=== PATIENT | female | born 1945 | race Caucasian/White ===

== ENCOUNTER 2018-05-11 11:31 | Inpatient (IN) ==
--- NOTE | 2018-05-11 12:27 | P.PNCC ---
Objective Vital Signs / I&O: Vital Signs 05/11/18 11:49 Temperature 98.3 F Pulse Rate 50 L Respiratory Rate 21 Blood Pressure 127/62 Pulse Oximetry 98
--- NOTE | 2018-05-11 12:34 | P.HPCC ---
History of Present Illness Service: Critical care medicine Primary Care Physician: UNKNOWN Chief Complaint: Acute hemorrhagic stroke History of Present Illness: 73 y/o woman developed acute expressive aphasia earlier today while on the [place] rehab service. CAT scan of the head reveals a new basal ganglia hemorrhage. I discussed the patient with Dr. Vu and arrangements for transfer were made to the intensive surgical care unit. Recent history includes a hemorrhagic thalamic stroke on April 18 resulting in dense left sided hemiplegia following which she was receiving rehab care at [facility]. She is a 73-year-old female, [id number] with past medical history of hypertension, diabetes mellitus type 2 on oral agent at home, atrial fibrillation status post ablation and depression. In her usual state of health which included independence in ambulation and self-care until 04/18/2018 when she was admitted to [facility] after she slumped forward while sitting in a chair falling to the ground. states the patient did not hit her head, she had immediate left-sided weakness and was brought in as a stroke alert. Dr Jeison Black, tele-neurology consult. Also noted on exam was right gaze preference and hypersensitivity left upper and left lower extremity. CT scan of the head showed a right sided intracerebral hemorrhage involving the thalamic region and the internal capsule with mild mass-effect over the right lateral ventricle she was conscious on arrival and able to protect her airway. Her blood pressure was elevated. Chest x-ray showed cardiomegaly, poststernotomy and possibly mild CHF. Inpatient Certification: I certify that the inpatient services were ordered in accordance with Medicare regulations governing the order. This includes certification that hospital inpatient services are reasonable and necessary and in the case of services not specified as inpatient-only under 42 CFR 419.22(n), that they are appropriately provided as inpatient services in accordance to with the 2-midnight benchmark under 43 CFR 412.3(e) Review of Systems No chest pain or shortness of breath. PMF - History History Provided By: Patient (Resides in a 1 floor home with who is in good health, no steps at entry, retired x-ray sterile instrument technician) - Medical History Medical History: Medical History (Last Reviewed 05/13/18 @ 08:45 by Kirstin Zamorano, [employer] OPERATOR) Cerebral hemorrhage with hemiparesis Depression A-fib DM type 2 (diabetes mellitus, type 2) HTN (hypertension) - Surgical History Surgical History: Surgical History (Last Reviewed 05/13/18 @ 08:13 by Leopoldo Currie) Hx of CABG S/P ablation of atrial fibrillation - Family History Family History: Family History (Last Updated 05/12/18 @ 16:53 by BRISA Rico) Father Hypertension Stroke Brother Hypertension Sister Multiple sclerosis Mother Dementia Brother Stroke - Tobacco History Second Hand Smoke Exposure: No Smoking Status: Never smoker - Alcohol History How Often Do You Have a Drink Containing Alcohol: Monthly or less - Substance Use History Substance History: No History of Abuse Medications and Allergies Allergies Allergy/AdvReac Type Severity Reaction Status Date / Time Iodinated Contrast- Oral and Allergy Severe HIVES, Verified 04/29/18 09:15 IV Dye CAN'T BREATHE ammonia Allergy Intermediate SOB Verified 04/29/18 09:15 hydrocodone Allergy Intermediate VOMITING Verified 04/29/18 09:15 penicillin G Allergy Intermediate HIVES, Verified 04/29/18 09:15 THROAT CLOSED Sulfa (Sulfonamide Allergy Intermediate HIVES, Verified 04/29/18 09:15 Antibiotics) THROAT CLOSED tree and shrub pollen Allergy Intermediate SOB Verified 04/29/18 09:15 Home Medications Medication Instructions Recorded Confirmed Type insulin glargine 16 unit SUB-Q DAILY 04/28/18 04/28/18 History multivitamin with minerals 2 tab PO BID 04/28/18 04/28/18 History ondansetron HCl 2 mg/ml IV Q4HR PRN 04/28/18 04/28/18 History Results - Labs CBC & Chem 7: 05/14/18 04:08 Exam Vital signs: Vital Signs 05/11/18 11:49 Temperature 98.3 F Pulse Rate 50 L Respiratory Rate 21 Blood Pressure 127/62 Pulse Oximetry 98 Narrative: General: No acute distress, Other (Alert, follows commands) HEENT: Normocephalic, atraumatic. PERRL, conjunctiva pink, sclera nonicteric. Respiratory: Lungs CTA, Non-labored respirations, BS equal, Symmetrical expansion Gastrointestinal: Positive bowel sounds, Distended (Soft), Non-tender. Cardiovascular: Normal rate, Intact pulses, Normal peripheral perfusion, No edema, Regular rhythm Skin: No rash, Other (Full exam of skin completed, pink slightly red rash bilateral inguinal folds, mild red satellite lesions consistent with fungal) Musculoskeletal: ROM (No restrictions on passive and active range of motion) Psychiatric: Cooperative, Appropriate mood & affect Neuro: Dense left hemiplegia, chronic. Tongue protrudes to left side. No left sided shoulder shrug. EOMs intact. Moves right side with normal strength. Caprini VTE Risk Assessment Caprini VTE Risk Assessment: Moderate/High Risk (score >= 2) Caprini Risk Assessment Model: Point Value = 1 Point Value = 2 Point Value = 3 Point Value = 5 Age 41-60 Minor surgery BMI > 25 kg/m2 Swollen legs Varicose veins or History of unexplained or recurrent spontaneous Oral contraceptives or hormone replacement Sepsis (< 1 month) Serious lung disease, including pneumonia (< 1 month) Abnormal pulmonary function Acute myocardial infarction Congestive heart failure (< 1 month) History of inflammatory bowel disease Medical patient at bed rest Age 61-74 Arthroscopic surgery Major open surgery (> 45 min) Laparoscopic surgery (> 45 min) Malignancy Confined to bed (> 72 hours) Immobilizing plaster cast Central venous access Age >= 75 History of VTE Family history of VTE Factor V Leiden Prothrombin [id number] Lupus anticoagulant Anticardiolipin antibodies Elevated serum homocysteine Heparin-induced thrombocytopenia Other congenital or acquired thrombophilia Stroke (< 1 month) Elective arthroplasty Hip, pelvis, or leg fracture Acute spinal cord injury (< 1 month) Prophylaxis Regimen: Total Risk Factor Score Risk Level Prophylaxis Regimen 0-1 Low Early ambulation 2 Moderate Order ONE of the following: *Sequential Compression Device (SCD) *Heparin 5000 units SQ BID 3-4 Higher Order ONE of the following medications: *Heparin 5000 units SQ TID *Enoxaparin/Lovenox 40 mg SQ daily (WT < 150 kg, CrCl > 30 mL/min) *Enoxaparin/Lovenox 30 mg SQ daily (WT < 150 kg, CrCl > 10-29 mL/min) *Enoxaparin/Lovenox 30 mg SQ BID (WT < 150 kg, CrCl > 30 mL/min) AND/OR *Sequential Compression Device (SCD) 5 or more Highest Order ONE of the following medications: *Heparin 5000 units SQ TID (Preferred with Epidurals) *Enoxaparin/Lovenox 40 mg SQ daily (WT < 150 kg, CrCl > 30 mL/min) *Enoxaparin/Lovenox 30 mg SQ daily (WT < 150 kg, CrCl > 10-29 mL/min) *Enoxaparin/Lovenox 30 mg SQ BID (WT < 150 kg, CrCl > 30 mL/min) AND *Sequential Compression Device (SCD) Assessment and Plan - Assessment and Plan Plan: Assessment and Plan - Diagnosis (1) Nontraumatic intracerebral hemorrhage of basal ganglia Onset Date: ~04/18/18 Status: Acute (2) Acute respiratory failure with hypoxia Onset Date: ~04/18/18 Status: Acute (3) Impaired mobility and ADLs Onset Date: ~04/18/18 Status: Acute (4) Dysphagia Onset Date: ~04/18/18 Status: Acute (5) Poorly controlled diabetes mellitus Onset Date: ~04/18/18 Status: Acute (6) S/P ablation of atrial fibrillation Status: Acute (7) Hypertension Onset Date: ~04/18/18 Status: Acute (8) Depression Status: Chronic (9) Aspiration pneumonia Onset Date: ~04/19/18 Status: Acute - Diagnosis (1) Nontraumatic intracerebral hemorrhage of right basal ganglia Right sided thalamic stroke April 18, new right sided basal ganglia stroke with Left hemiplegia May 11 Ms. Adelita Carey will receive comprehensive care including rehabilitation medicine management, rehabilitation nursing, at least 3 hours of rehabilitation therapies including physical, occupational and speech therapy, recreational therapy and case management. (2) Acute respiratory failure with hypoxia Plan: Monitor oximetry with exercise pre and during for desaturation. Onset Date: ~04/18/18 Status: Acute (3) Impaired mobility and ADLs Plan: Consult PT and OT to evaluate and treat Onset Date: ~04/18/18 Status: Acute (4) Dysphagia Plan: Maintain ADA diet, mechanical soft with chopped meats and gravy, nectar thick liquids. Speech therapy to evaluate and treat Onset Date: ~04/18/18 Status: Acute (5) Poorly controlled diabetes mellitus Plan: Medical consultation requested. For now Lantus 16 units every morning will start before meals at bedtime insulin sliding scale. ADA diet Onset Date: ~04/18/18 Status: Acute (6) S/P ablation of atrial fibrillation Plan: Hold anticoagulants at present due to intracerebral bleed Status: Acute (7) Hypertension Plan: Poorly controlled on initial presentation with acute stroke/bleed, maintain systolic pressure less than 160. Patient is on new multi drug regimen. Hospitalist consultation for ongoing care. Monitor blood pressure monitoring of vital signs and tolerance to exercise in therapy to ensure stable heart rate and BP and adequate perfusion, monitor for arrhythmia, adjustment of medications , monitoring for side effects of medications Onset Date: ~04/18/18 Status: Acute (8) Depression Plan: Continue Remeron. Psychology consultation if clinically indicated with new stroke Status: Chronic (9) Aspiration pneumonia Plan: Speech therapy to evaluate and treat for swallow. Maintain diet mechanical soft , nectar thick liquids. Complete course of clindamycin and Ceftin. Monitor WBC, vital signs/ temperature. Optimize pulmonary function and monitor oximetry and tolerance to exercise in therapy Onset Date: ~04/19/18 Status: Acute
[2018-05-11] MEDS ORDERED: Bisacodyl 10 MG Supp RECTAL PRN (12:57)
[2018-05-11] MEDS: Acetaminophen 325 MG Tablet PO PRN (14:18)
--- NOTE | 2018-05-11 16:12 | P.PNPSYCH ---
- Emotional Mild: Depressed/sad - Progress Notes/Response to Treatment Contents of Sessions: Challenges, Medical Procedure and Time with Patient: Psychotherapy 01234, 53-60 minutes Targeted Symptoms/Reason for Referral: All symptoms related to patient adjusting to decreased functional ability immediately following medical stay, to encourage ongoing program participation, and to provide empathic listening as patient processes thoughts and feelings about medical complexities. Symptoms include, but are not limited to, fluctuating levels of anxiety, depressed mood, and frustration related to loss of independence and autonomy. Type of Therapeutic Intervention: Supportive, interpersonal, insight oriented, with collateral focus on family/ caregiver system as needed. Treatment Plan: The plan is to continue to provide supportive psychotherapy throughout the patient's stay in the facility. This program writer will continue to promote participation in therapies across all domains which increase the patient's functional ability. I will attend team conferences in order to have ongoing consultation with other members of the patient's treatment team across all domains. I will observe the patient participating with other therapists across different domains in order to gauge the patient's participation and provide appropriate feedback to the patient related to their responsiveness to the treating therapists and the emotional content related to participation in the rehabilitation program both in the gym/room during treatment and when the patient is getting restorative rest outside treatment times. I will also continue to normalize the patients feelings related to their medical complexities and ongoing challenges to which they are adjusting, while providing verbal praise and ongoing encouragement related to participation in the program. The goal is for the patient to continue to participate in therapies and process thoughts and feelings regarding the medical rehabilitation process. This goal is ongoing throughout their stint, as the patient must be effortful in the therapy process so that all and occupational therapy goals can be met despite ongoing medical complexities. Emotional transparency and insight regarding the way their history and present situation shape their emotional functioning and response to the stressors indigenous to the medical rehabilitation process will be addressed as appropriate. The long- term goal is to diminish, or at least identify and appropriately process, any uncomfortable feelings related to the patient's ongoing challenges that are a part of recovering from a medical crisis and to assist the patient in adapting and adjusting to functioning at the improving levels the patient meets throughout the course of their stay at the facility. Progress Toward Goals / Interaction/Reaction to Therapy: Patient is engaged and responsive, with good eye contact and ability to attend to interaction. Patients mood is congruent with their present situation and they are continuing to attempt to manage emotional content related to the level of independence they had before the onset of their health complexities versus compromised physical well-being. Patient is struggling today. She is very lethargic and having difficulty attending to tasks she is being evaluated and may be sent to the other side of the hospital. Met with the patient's and provided support and education. He presents as caring and attentive. Diagnosis F 32.9 depressive disorder recurrent unspecified
--- NOTE | 2018-05-11 18:03 | P.CONNEU ---
History of Present Illness Service: Neurology Primary Care Provider: UNKNOWN Chief Complaint: Acute hemorrhagic stroke History of Present Illness: 73-year-old female, admitted to the intensive care unit for neurologic change according to the rehab practitioners. She is sent to [place] rehab from [facility] for post stroke care. She originally presented to [facility] on 04/18/2018 with left-sided weakness. She is noted to have left hemiparesis right gaze preference and a CAT scan demonstrated right thalamic bleed. She has a history of atrial fibrillation is on oral anticoagulation is held and she is seen by neurosurgery. She is conservatively managed. She was noted to have some change in her speech and breathing and was sent to the intensive care unit for further evaluation by rehab. Patient is a poor historian medical chart reviewed Review of Systems All other systems reviewed negative except as stated in HPI [facility] - History History Provided By: Family Member - Medical History Medical History: Medical History (Last Reviewed 05/11/18 @ 14:18 by Ty Muro) A-fib DM type 2 (diabetes mellitus, type 2) HTN (hypertension) - Surgical History Surgical History: Surgical History (Last Reviewed 05/11/18 @ 14:18 by Ty Muro) Hx of CABG S/P ablation of atrial fibrillation - Family History Family History: Family History (Last Reviewed 04/29/18 @ 02:50 by Monique Lewis RN) Father Stroke Hypertension Brother Hypertension Sister Multiple sclerosis Mother Dementia - Tobacco History Second Hand Smoke Exposure: No Smoking Status: Never smoker - Alcohol History How Often Do You Have a Drink Containing Alcohol: Monthly or less - Substance Use History Substance History: No History of Abuse - Immunization History Tetanus Immunization: Unsure Hx Influenza Vaccine This Season: No Medications and Allergies Active Medications: Active Medications Acetaminophen (Tylenol) 650 mg PO Q6H PRN PRN Reason: PAIN 1-10 AND/OR FEVER >101F Last Admin: 05/11/18 14:18 Dose: 650 mg Al Hydroxide/Mg Hydroxide (Milk Of Magnemma Liq) 30 ml PO Q12H PRN PRN Reason: Mild Constipation Bisacodyl (Dulcolax Supp) 10 mg RECTAL DAILY PRN PRN Reason: SEVERE CONSITIPATION Chlorhexidine Gluconate (Chlorhexidine 2% Cloth) 3 pack TOPICAL DAILY@0400 [facility] Stop: 05/17/18 03:59 Chlorhexidine Gluconate (Chlorhexidine 2% Cloth) 3 pack TOPICAL DAILY@0400 PRN PRN Reason: Extra cloth needed Stop: 05/17/18 03:59 Famotidine (Pepcid Pf Inj) 20 mg IV.PUSH Q12HR [facility] Potassium Chloride/Sodium Chloride (Ns + Kcl 20 Meq Inj) 1,000 mls @ 75 mls/hr IV.CONT .[id number] [facility] Last Admin: 05/11/18 14:18 Dose: 75 mls/hr Lactulose (Lactulose Liq) 30 ml PO DAILY PRN PRN Reason: SEVERE CONSITIPATION Senna/Docusate Sodium (Jessica-Colace) 1 tab PO BID [facility] Sennosides (Senokot) 17.2 mg PO Q12H PRN PRN Reason: Moderate Constipation Sodium Chloride (Ns Flush) 2 ml IV.FLUSH BID [facility] Sodium Chloride (Ns Flush) 2 ml IV.FLUSH PRN PRN PRN Reason: FLUSH AFTER USING IV ACCESS Allergies Allergy/AdvReac Type Severity Reaction Status Date / Time Iodinated Contrast- Oral and Allergy Severe HIVES, Verified 04/29/18 09:15 IV Dye CAN'T BREATHE ammonia Allergy Intermediate SOB Verified 04/29/18 09:15 hydrocodone Allergy Intermediate VOMITING Verified 04/29/18 09:15 penicillin G Allergy Intermediate HIVES, Verified 04/29/18 09:15 THROAT CLOSED Sulfa (Sulfonamide Allergy Intermediate HIVES, Verified 04/29/18 09:15 Antibiotics) THROAT CLOSED tree and shrub pollen Allergy Intermediate SOB Verified 04/29/18 09:15 Home Medications Medication Instructions Recorded Confirmed Type insulin glargine 16 unit SUB-Q DAILY 04/28/18 04/28/18 History multivitamin with minerals 2 tab PO BID 04/28/18 04/28/18 History ondansetron HCl 2 mg/ml IV Q4HR PRN 04/28/18 04/28/18 History Exam Vital signs: Vital Signs 05/11/18 11:49 05/11/18 16:00 Temperature 98.3 F Pulse Rate 50 L Respiratory Rate 21 19 Blood Pressure 127/62 Pulse Oximetry 98 Narrative: GENERAL: in minimal distress SKIN: Warm and dry. HEAD: Atraumatic. Normocephalic. EYES: Pupils equal and round. No scleral icterus. ENT: No nasal bleeding or discharge. Mucous membranes pink and moist. NECK: Trachea midline. No JVD. CARDIOVASCULAR: Regular rate and rhythm. RESPIRATORY: Mild accessory muscle use. GASTROINTESTINAL: Abdomen soft, non-tender, nondistended. MUSCULOSKELETAL: Extremities without clubbing, cyanosis, or edema. No obvious deformities. NEUROLOGICAL: Alerts and follows simple request, appears to be shivering blankets have been given to the patient, oriented to herself follow some simple motor requests, OU 3.5 to approximately 3 mm, right gaze preference left facial droop left spastic hemiplegia left upper extremity sling PSYCHIATRIC: Appears calm - Constitutional no acute distress - Routine HEENT Exam Head: Present: normocephalic Results - Labs Labs: Laboratory Results - last 24 hr 05/11/18 12:20 Nasal Screen MRSA (PCR) Mrsa detected Review/Management - Diagnosis (1) Nontraumatic intracerebral hemorrhage of basal ganglia Code(s): I61.9 - Nontraumatic intracerebral hemorrhage, unspecified; Z86.79 - Personal history of other diseases of the circulatory system Status: Acute Onset Date: ~04/18/18 Current Visit: No (2) Hypertension Code(s): I10 - Essential (primary) hypertension Status: Acute Onset Date: ~ 04/18/18 Current Visit: No (3) Depression Code(s): F32.9 - Major depressive disorder, single episode, unspecified Status : Chronic Current Visit: No (4) S/P ablation of atrial fibrillation Code(s): Z98.890 - Other specified postprocedural states; Z86.79 - Personal history of other diseases of the circulatory system Status: Acute Current Visit: No (5) CHF (congestive heart failure) Code(s): I50.9 - Heart failure, unspecified Status: Acute Current Visit: Yes - Review/Management Plan: Possible anticoagulant related intracerebral hemorrhage Recommendations Blood pressure control less than 140/90 can use a nicardipine drip Chest x-ray when feasible May have mild CHF exacerbation Follow-up MRI scan Therapy Follow exam Discussed with RN and critical care (2) Hypertension Qualifiers: Hypertension type: essential hypertension Qualified Code(s): I10 - Essential (primary) hypertension (3) Depression Qualifiers: Depression Type: dysthymia Qualified Code(s): F34.1 - Dysthymic disorder
--- NOTE | 2018-05-11 18:44 | P.CONNS ---
History of Present Illness Service: Neurosurgery Consult date: 05/11/18 Requesting Physician: Yunior Valle (Casualty Insurance Claim Adjuster) Reason for Consult: Right basal ganglia hemorrhage Primary Care Provider: UNKNOWN History of Present Illness: 73-year-old female was admitted for hospital H 3 weeks ago with a right basal ganglia stroke. She was on chronic anticoagulation for atrial fibrillation which was held and evaluated by neurosurgery and medical management recommended. She was transferred to [facility] and was noted to have some difficulty with her speech and change in mental status and CT scan of the head obtained which reveals subacute right basal ganglia hemorrhage. She was transferred to [facility] intensive care unit and neurology and neurosurgery consultation requested. Patient will state her name but does not relate much of a history. Review of Systems unobtainable due to mental condition PMFSH - History History Provided By: Family Member - Medical History Medical History: Medical History (Last Updated 05/11/18 @ 18:38 by Beto Rojas MD) Cerebral hemorrhage with hemiparesis A-fib DM type 2 (diabetes mellitus, type 2) HTN (hypertension) - Surgical History Surgical History: Surgical History (Last Reviewed 05/11/18 @ 18:38 by Beto Rojas MD) Hx of CABG S/P ablation of atrial fibrillation - Family History Family History: Family History (Last Reviewed 05/11/18 @ 18:38 by Beto Rojas MD) Father Stroke Hypertension Brother Hypertension Sister Multiple sclerosis Mother Dementia - Tobacco History Second Hand Smoke Exposure: No Smoking Status: Never smoker - Alcohol History How Often Do You Have a Drink Containing Alcohol: Monthly or less - Substance Use History Substance History: No History of Abuse - Immunization History Tetanus Immunization: Unsure Hx Influenza Vaccine This Season: No Medications and Allergies Active Medications: Active Medications Acetaminophen (Tylenol) 650 mg PO Q6H PRN PRN Reason: PAIN 1-10 AND/OR FEVER >101F Last Admin: 05/11/18 14:18 Dose: 650 mg Al Hydroxide/Mg Hydroxide (Milk Of Magnesia Liq) 30 ml PO Q12H PRN PRN Reason: Mild Constipation Bisacodyl (Dulcolax Supp) 10 mg RECTAL DAILY PRN PRN Reason: SEVERE CONSITIPATION Chlorhexidine Gluconate (Chlorhexidine 2% Cloth) 3 pack TOPICAL DAILY@0400 [facility] Stop: 05/17/18 03:59 Chlorhexidine Gluconate (Chlorhexidine 2% Cloth) 3 pack TOPICAL DAILY@0400 PRN PRN Reason: Extra cloth needed Stop: 05/17/18 03:59 Famotidine (Pepcid Pf Inj) 20 mg IV.PUSH Q12HR [facility] Potassium Chloride/Sodium Chloride (Ns + Kcl 20 Meq Inj) 1,000 mls @ 75 mls/hr IV.CONT .[id number] [facility] Last Admin: 05/11/18 14:18 Dose: 75 mls/hr Lactulose (Lactulose Liq) 30 ml PO DAILY PRN PRN Reason: SEVERE CONSITIPATION Senna/Docusate Sodium (Jessica-Colace) 1 tab PO BID [facility] Sennosides (Senokot) 17.2 mg PO Q12H PRN PRN Reason: Moderate Constipation Sodium Chloride (Ns Flush) 2 ml IV.FLUSH BID [facility] Sodium Chloride (Ns Flush) 2 ml IV.FLUSH PRN PRN PRN Reason: FLUSH AFTER USING IV ACCESS Allergies Allergy/AdvReac Type Severity Reaction Status Date / Time Iodinated Contrast- Oral and Allergy Severe HIVES, Verified 04/29/18 09:15 IV Dye CAN'T BREATHE ammonia Allergy Intermediate SOB Verified 04/29/18 09:15 hydrocodone Allergy Intermediate VOMITING Verified 04/29/18 09:15 penicillin G Allergy Intermediate HIVES, Verified 04/29/18 09:15 THROAT CLOSED Sulfa (Sulfonamide Allergy Intermediate HIVES, Verified 04/29/18 09:15 Antibiotics) THROAT CLOSED tree and shrub pollen Allergy Intermediate SOB Verified 04/29/18 09:15 Home Medications Medication Instructions Recorded Confirmed Type insulin glargine 16 unit SUB-Q DAILY 04/28/18 04/28/18 History multivitamin with minerals 2 tab PO BID 04/28/18 04/28/18 History ondansetron HCl 2 mg/ml IV Q4HR PRN 04/28/18 04/28/18 History Exam Vital signs: Vital Signs 05/11/18 11:49 05/11/18 16:00 Temperature 98.3 F Pulse Rate 50 L Respiratory Rate 21 19 Blood Pressure 127/62 Pulse Oximetry 98 - Constitutional no acute distress - Routine HEENT Exam Head: Present: normocephalic, atraumatic Eye: Present: EOMI, PERRL ENT: Present: mucous membranes moist, oropharynx clear, nares patent, external ear normal - Routine Neck Exam Present: supple, full ROM - Routine Respiratory Exam Present: CTA bilaterally - Routine Cardiovascular Exam Present: S1, S2, irregular rhythm - Routine Abdominal Exam Present: soft, normoactive bowel sounds - Routine Extremities Exam Present: edema, pulses intact, normal capillary refill - Routine Skin Exam Present: intact - Routine Neurological Exam Present: alert (She is alert although states her name and knows she is in the hospital but not the exact hospital name or date; she has a left facial droop), motor deficit (Left hemiplegia and moves right side spontaneous), facial asymmetry Assessment and Plan - Assessment (1) Nontraumatic intracerebral hemorrhage of basal ganglia Code(s): I61.9 - Nontraumatic intracerebral hemorrhage, unspecified; Z86.79 - Personal history of other diseases of the circulatory system Status: Chronic Onset Date: ~04/18/18 (2) Hypertension Code(s): I10 - Essential (primary) hypertension Status: Chronic Onset Date: ~04/18/18 (3) S/P ablation of atrial fibrillation Code(s): Z98.890 - Other specified postprocedural states; Z86.79 - Personal history of other diseases of the circulatory system Status: Chronic (4) CHF (congestive heart failure) Code(s): I50.9 - Heart failure, unspecified Status: Chronic - Plan 73-year-old lady with a history of right basal ganglia hemorrhage 3 weeks ago at [facility] treated nonsurgically. She also has a history of atrial fibrillation on chronic anticoagulation which has been withheld due to the cerebral hemorrhage. Follow-up CT scan of the head reveals evolving subacute right basal ganglia hemorrhage and this does not appear to be a new finding. Possibility of a cardioembolic TIA/strokes needs to be entertained and the neurology service has requested an MRI scan of the brain. At this point no neurosurgical intervention is recommended and continue with medical management and rehabilitation. (2) Hypertension Qualifiers: Hypertension type: essential hypertension Qualified Code(s): I10 - Essential (primary) hypertension
[2018-05-11] MEDS: Famotidine PF Inj 20 MG/2 ML Vial IV.PUSH SCH (20:48)
[2018-05-11] MEDS: Senna/Docusate Sodium 8.6/50 MG Tablet PO SCH (20:48)
[2018-05-12] MEDS ORDERED: Chlorhexidine Gluconate 2% 1 Pack (2 Cloths) TOPICAL PRN (04:00)
[2018-05-12] MEDS: Chlorhexidine Gluconate 2% 1 Pack (2 Cloths) TOPICAL SCH (05:13)
[2018-05-12 07:13] LABS: Carbon Dioxide 17.9 meq/L (21.0-32.0)
[2018-05-12] MEDS: Senna/Docusate Sodium 8.6/50 MG Tablet PO SCH ×2 (08:22→20:51)
[2018-05-12] MEDS: Famotidine PF Inj 20 MG/2 ML Vial IV.PUSH SCH ×2 (08:22→20:51)
--- NOTE | 2018-05-12 08:52 | P.PNCC ---
Subjective Subjective Remarks/Hospital Course: 73 y/o woman developed acute expressive aphasia earlier today while on the [place] rehab service. CAT scan of the head reveals a new basal ganglia hemorrhage. I discussed the patient with Dr. Vu and arrangements for transfer were made to the intensive surgical care unit. Recent history includes a hemorrhagic stroke on April 18 resulting in dense left sided hemiplegia following which she was receiving rehab care at [place]. She is a 73- year-old female, [id number] with past medical history of hypertension, diabetes mellitus type 2 on oral agent at home, atrial fibrillation status post ablation and depression. In her usual state of health which included independence in ambulation and self-care until 04/18/2018 when she was admitted to [facility] after she slumped forward while sitting in a chair falling to the ground. states the patient did not hit her head, she had immediate left-sided weakness and was brought in as a stroke alert. Dr Jeison Black, tele-neurology consult. Also noted on exam was right gaze preference and hypersensitivity left upper and left lower extremity. CT scan of the head showed a right sided intracerebral hemorrhage involving the thalamic region and the internal capsule with mild mass-effect over the right lateral ventricle she was conscious on arrival and able to protect her airway. Her blood pressure was elevated. Chest x-ray showed cardiomegaly, poststernotomy and possibly mild CHF. 05/12: Speech remains impaired. I think she is oriented to herself but little else. She has a very specific advanced directive which I will ask palliative care to help me navigate. Objective Vital Signs / I&O: Vital Signs 05/11/18 11:49 05/11/18 16:00 05/11/18 20:00 Temperature 98.3 F 97.7 F 97.8 F Pulse Rate 50 L 60 70 Respiratory Rate 21 31 H 26 H Blood Pressure 127/62 131/62 132/85 Pulse Oximetry 98 98 96 05/12/18 00:00 05/12/18 04:00 05/12/18 08:00 Temperature 98.3 F 98.4 F 97.8 F Pulse Rate 78 70 88 Respiratory Rate 30 H 27 H 17 Blood Pressure 144/67 H 95/51 L 150/62 H Pulse Oximetry 99 95 Intake & Output 05/11/18 05/12/18 05/12/18 18:59 06:59 18:59 Intake Total 950 / 950 Output Total 1050 / 1050 350 / 350 Balance -1050 / -1050 600 / 600 Weight 86.5 kg Intake: IV 950 / 950 NS + KCl 20 mEq Inj 1,000 ML @ 950 / 950 75 mls/hr IV.CONT .[id number] [facility] Rx#:[id number] Output: Urine Amount (Catheter) 1050 / 1050 350 / 350 Straight 1050 / 1050 350 / 350 Result Diagrams: 05/12/18 06:30 Objective Remarks: 73 y/o woman developed acute expressive aphasia earlier today while on the [place] rehab service. CAT scan of the head reveals a new basal ganglia hemorrhage. I discussed the patient with Dr. Vu and arrangements for transfer were made to the intensive surgical care unit. Recent history includes a hemorrhagic thalamic stroke on April 18 resulting in dense left sided hemiplegia following which she was receiving rehab care at [place]. She is a 73-year-old female, [id number] with past medical history of hypertension, diabetes mellitus type 2 on oral agent at home, atrial fibrillation status post ablation and depression. In her usual state of health which included independence in ambulation and self-care until 04/18/2018 when she was admitted to [facility] after she slumped forward while sitting in a chair falling to the ground. states the patient did not hit her head, she had immediate left-sided weakness and was brought in as a stroke alert. Dr Jeison Black, tele-neurology consult. Also noted on exam was right gaze preference and hypersensitivity left upper and left lower extremity. CT scan of the head showed a right sided intracerebral hemorrhage involving the thalamic region and the internal capsule with mild mass-effect over the right lateral ventricle she was conscious on arrival and able to protect her airway. Her blood pressure was elevated. Chest x-ray showed cardiomegaly, poststernotomy and possibly mild CHF. Inpatient Certification: I certify that the inpatient services were ordered in accordance with Medicare regulations governing the order. This includes certification that hospital inpatient services are reasonable and necessary and in the case of services not specified as inpatient-only under 42 CFR 419.22(n), that they are appropriately provided as inpatient services in accordance to with the 2-midnight benchmark under 43 CFR 412.3(e) Review of Systems No chest pain or shortness of breath. PMFSH - History History Provided By: Patient (Resides in a 1 floor home with who is in good health, no steps at entry, retired x-ray vtc technician) - Medical History Medical History: Medical History (Last Reviewed 05/06/18 @ 07:32 by Sarahi Dennis) A-fib DM type 2 (diabetes mellitus, type 2) HTN (hypertension) - Surgical History Surgical History: Surgical History (Last Reviewed 05/06/18 @ 07:32 by Sarahi Dennis) Hx of CABG S/P ablation of atrial fibrillation - Family History Family History: Family History (Last Reviewed 04/29/18 @ 02:50 by Monique Lewis RN) Father Stroke Hypertension Brother Hypertension Sister Multiple sclerosis Mother Dementia - Tobacco History Second Hand Smoke Exposure: No Smoking Status: Never smoker - Alcohol History How Often Do You Have a Drink Containing Alcohol: Monthly or less - Substance Use History Substance History: No History of Abuse Medications and Allergies Allergies Allergy/AdvReac Type Severity Reaction Status Date / Time Iodinated Contrast- Oral and Allergy Severe HIVES, Verified 04/29/18 09:15 IV Dye CAN'T BREATHE ammonia Allergy Intermediate SOB Verified 04/29/18 09:15 hydrocodone Allergy Intermediate VOMITING Verified 04/29/18 09:15 penicillin G Allergy Intermediate HIVES, Verified 04/29/18 09:15 THROAT CLOSED Sulfa (Sulfonamide Allergy Intermediate HIVES, Verified 04/29/18 09:15 Antibiotics) THROAT CLOSED tree and shrub pollen Allergy Intermediate SOB Verified 04/29/18 09:15 Home Medications Medication Instructions Recorded Confirmed Type insulin glargine 16 unit SUB-Q DAILY 04/28/18 04/28/18 History multivitamin with minerals 2 tab PO BID 04/28/18 04/28/18 History ondansetron HCl 2 mg/ml IV Q4HR PRN 04/28/18 04/28/18 History Exam Vital signs: Vital Signs 05/11/18 11:49 Temperature 98.3 F Pulse Rate 50 L Respiratory Rate 21 Blood Pressure 127/62 Pulse Oximetry 98 Narrative: General: No acute distress, Other (Alert, follows commands) HEENT: Normocephalic, atraumatic. PERRL, conjunctiva pink, sclera nonicteric. Respiratory: Lungs CTA, Non-labored respirations, BS equal, Symmetrical expansion Gastrointestinal: Positive bowel sounds, Distended (Soft), Non-tender. Cardiovascular: Normal rate, Intact pulses, Normal peripheral perfusion, No edema, Regular rhythm Skin: No rash, Other (Full exam of skin completed, pink slightly red rash bilateral inguinal folds, mild red satellite lesions consistent with fungal) Musculoskeletal: ROM (No restrictions on passive and active range of motion) Psychiatric: Cooperative, Appropriate mood & affect Neuro: Dense left hemiplegia, chronic. Tongue protrudes to left side. No left sided shoulder shrug. EOMs intact. Moves right side with normal strength. Assessment and Plan - Assessment and Plan Plan: Assessment and Plan - Diagnosis (1) Nontraumatic intracerebral hemorrhage of basal ganglia Onset Date: ~04/18/18 Status: Acute (2) Acute respiratory failure with hypoxia Onset Date: ~04/18/18 Status: Acute (3) Impaired mobility and ADLs Onset Date: ~04/18/18 Status: Acute (4) Dysphagia Onset Date: ~04/18/18 Status: Acute (5) Poorly controlled diabetes mellitus Onset Date: ~04/18/18 Status: Acute (6) S/P ablation of atrial fibrillation Status: Acute (7) Hypertension Onset Date: ~04/18/18 Status: Acute (8) Depression Status: Chronic (9) Aspiration pneumonia Onset Date: ~04/19/18 Status: Acute - Diagnosis (1) Nontraumatic intracerebral hemorrhage of right basal ganglia Right sided thalamic stroke April 18, new right sided basal ganglia stroke with Left hemiplegia May 11 Ms. Adelita Carey will receive comprehensive care including rehabilitation medicine management, rehabilitation nursing, at least 3 hours of rehabilitation therapies including physical, occupational and speech therapy, recreational therapy and case management. (2) Acute respiratory failure with hypoxia Plan: Monitor oximetry with exercise pre and during for desaturation. Onset Date: ~04/18/18 Status: Acute (3) Impaired mobility and ADLs Plan: Consult PT and OT to evaluate and treat Onset Date: ~04/18/18 Status: Acute (4) Dysphagia Plan: Maintain ADA diet, mechanical soft with chopped meats and gravy, nectar thick liquids. Speech therapy to evaluate and treat Onset Date: ~04/18/18 Status: Acute (5) Poorly controlled diabetes mellitus Plan: Medical consultation requested. For now Lantus 16 units every morning will start before meals at bedtime insulin sliding scale. ADA diet Onset Date: ~04/18/18 Status: Acute (6) S/P ablation of atrial fibrillation Plan: Hold anticoagulants at present due to intracerebral bleed Status: Acute (7) Hypertension Plan: Poorly controlled on initial presentation with acute stroke/bleed, maintain systolic pressure less than 160. Patient is on new multi drug regimen. Hospitalist consultation for ongoing care. Monitor blood pressure monitoring of vital signs and tolerance to exercise in therapy to ensure stable heart rate and BP and adequate perfusion, monitor for arrhythmia, adjustment of medications , monitoring for side effects of medications Onset Date: ~04/18/18 Status: Acute (8) Depression Plan: Continue Remeron. Psychology consultation if clinically indicated with new stroke Status: Chronic (9) Aspiration pneumonia Plan: Speech therapy to evaluate and treat for swallow. Maintain diet mechanical soft , nectar thick liquids. Complete course of clindamycin and Ceftin. Monitor WBC, vital signs/ temperature. Optimize pulmonary function and monitor oximetry and tolerance to exercise in therapy Onset Date: ~04/19/18 Status: Acute Overall impression: She appears to be approaching the condition for which her advanced directive will become operative.
--- NOTE | 2018-05-12 09:10 | P.PNNEU ---
Subjective Subjective Comments: no acute events, denies cp,dyspnea. c/o mild headache Active Medications: Active Medications Acetaminophen (Tylenol) 650 mg PO Q6H PRN PRN Reason: PAIN 1-10 AND/OR FEVER >101F Last Admin: 05/11/18 14:18 Dose: 650 mg Al Hydroxide/Mg Hydroxide (Milk Of Magnesia Liq) 30 ml PO Q12H PRN PRN Reason: Mild Constipation Bisacodyl (Dulcolax Supp) 10 mg RECTAL DAILY PRN PRN Reason: SEVERE CONSITIPATION Chlorhexidine Gluconate (Chlorhexidine 2% Cloth) 3 pack TOPICAL DAILY@0400 [facility] Stop: 05/17/18 03:59 Last Admin: 05/12/18 05:13 Dose: 3 pack Chlorhexidine Gluconate (Chlorhexidine 2% Cloth) 3 pack TOPICAL DAILY@0400 PRN PRN Reason: Extra cloth needed Stop: 05/17/18 03:59 Famotidine (Pepcid Pf Inj) 20 mg IV.PUSH Q12HR [facility] Last Admin: 05/12/18 08:22 Dose: Not Given Potassium Chloride/Sodium Chloride (Ns + Kcl 20 Meq Inj) 1,000 mls @ 75 mls/hr IV.CONT .[id number] [facility] Last Admin: 05/12/18 05:13 Dose: 75 mls/hr Lactulose (Lactulose Liq) 30 ml PO DAILY PRN PRN Reason: SEVERE CONSITIPATION Senna/Docusate Sodium (Jessica-Colace) 1 tab PO BID [facility] Last Admin: 05/12/18 08:22 Dose: Not Given Sennosides (Senokot) 17.2 mg PO Q12H PRN PRN Reason: Moderate Constipation Sodium Chloride (Ns Flush) 2 ml IV.FLUSH BID [facility] Last Admin: 05/12/18 08:23 Dose: Not Given Sodium Chloride (Ns Flush) 2 ml IV.FLUSH PRN PRN PRN Reason: FLUSH AFTER USING IV ACCESS Allergies/Adverse Reactions: Allergies Allergy/AdvReac Type Severity Reaction Status Date / Time Iodinated Contrast- Oral and Allergy Severe HIVES, Verified 04/29/18 09:15 IV Dye CAN'T BREATHE ammonia Allergy Intermediate SOB Verified 04/29/18 09:15 hydrocodone Allergy Intermediate VOMITING Verified 04/29/18 09:15 penicillin G Allergy Intermediate HIVES, Verified 04/29/18 09:15 THROAT CLOSED Sulfa (Sulfonamide Allergy Intermediate HIVES, Verified 04/29/18 09:15 Antibiotics) THROAT CLOSED tree and shrub pollen Allergy Intermediate SOB Verified 04/29/18 09:15 Review of Systems All other systems reviewed negative except as stated in HPI Physical Exam Vital signs: Vital Signs 05/11/18 11:49 05/11/18 16:00 05/11/18 20:00 Temperature 98.3 F 97.7 F 97.8 F Pulse Rate 50 L 60 70 Respiratory Rate 21 31 H 26 H Blood Pressure 127/62 131/62 132/85 Pulse Oximetry 98 98 96 05/12/18 00:00 05/12/18 04:00 05/12/18 08:00 Temperature 98.3 F 98.4 F 97.8 F Pulse Rate 78 70 88 Respiratory Rate 30 H 27 H 17 Blood Pressure 144/67 H 95/51 L 150/62 H Pulse Oximetry 99 95 Intake & Output 05/11/18 05/12/18 05/12/18 18:59 06:59 18:59 Intake Total 950 / 950 Output Total 1050 / 1050 350 / 350 Balance -1050 / -1050 600 / 600 Weight 86.5 kg Intake: IV 950 / 950 NS + KCl 20 mEq Inj 1,000 ML @ 950 / 950 75 mls/hr IV.CONT .[id number] [facility] Rx#:[id number] Output: Urine Amount (Catheter) 1050 / 1050 350 / 350 Straight 1050 / 1050 350 / 350 Narrative: GENERAL: in nad SKIN: Warm and dry. HEAD: Atraumatic. Normocephalic. EYES: Pupils equal and round. No scleral icterus. ENT: No nasal bleeding or discharge. Mucous membranes pink and moist. NECK: Trachea midline. No JVD. CARDIOVASCULAR: Regular rate and rhythm. RESPIRATORY: Mild accessory muscle use. GASTROINTESTINAL: Abdomen soft, non-tender, nondistended. MUSCULOSKELETAL: Extremities without clubbing, cyanosis, or edema. No obvious deformities. NEUROLOGICAL: Alerts and follows simple request, ox 1, follows, no tremor, left neglect, OU 3.5 to approximately 3 mm, right gaze preference left facial droop left spastic hemiplegia left upper extremity sling PSYCHIATRIC: Appears calm - Constitutional no acute distress - Routine HEENT Exam Head: Present: normocephalic - Urinary Catheter Management Straight Cath placed during this visit: no Objective Laboratory Results - last 24 hr 05/11/18 05/12/18 12:20 06:30 Sodium 143 Potassium 4.0 Chloride 112 H Carbon Dioxide 17.9 L Anion Gap 13 BUN 25 H Creatinine 0.91 Estimated GFR 61 L Random Glucose 140 H Calcium 9.0 Nasal Screen MRSA (PCR) Mrsa detected Review/Management - Diagnosis (1) Nontraumatic intracerebral hemorrhage of basal ganglia Code(s): I61.9 - Nontraumatic intracerebral hemorrhage, unspecified; Z86.79 - Personal history of other diseases of the circulatory system Status: Chronic Onset Date: ~04/18/18 Current Visit: No (2) Hypertension Code(s): I10 - Essential (primary) hypertension Status: Chronic Onset Date: ~04/18/18 Current Visit: No (3) Depression Code(s): F32.9 - Major depressive disorder, single episode, unspecified Status : Chronic Current Visit: No (4) S/P ablation of atrial fibrillation Code(s): Z98.890 - Other specified postprocedural states; Z86.79 - Personal history of other diseases of the circulatory system Status: Chronic Current Visit: No (5) CHF (congestive heart failure) Code(s): I50.9 - Heart failure, unspecified Status: Chronic Current Visit: Yes - Review/Management Plan: Possible anticoagulant related intracerebral hemorrhage Recommendations looks better today f/u ct brain f/u eeg bp control will consider provigil Therapy Follow exam Discussed with RN (2) Hypertension Qualifiers: Hypertension type: essential hypertension Qualified Code(s): I10 - Essential (primary) hypertension (3) Depression Qualifiers: Depression Type: dysthymia Qualified Code(s): F34.1 - Dysthymic disorder
--- NOTE | 2018-05-12 10:25 | P.CONPAL ---
Consult Service: Palliative Care Requesting Physician: Yunior Valle Reason for Consult: a. To assist with evaluation and management of symptoms including: debility b. To assist medical decision maker(s) with: better understanding of current medical conditions; weighing benefits/burdens of medical treatment options; making medical treatment decisions. Primary Care Provider: UNKNOWN History of Present Illness History of Present Illness: Ms. Carey is a 73 yo female with a past medical history of hypertension, diabetes, atrial fibrillation, depression, and hyperlipidemia. She was admitted from [facility] on 05/11/18 with new complaints of left-sided weakness and altered mental status. Previously the patient suffered a significant hemorrhagic stroke to the right thalamus on 04/18/18. She was treated at [facility] in [place] where, by report she had a somewhat prolonged course including aspiration pneumonia requiring brief ventilator support. She was left with notable left-sided weakness and transferred to [place] on 04/28/18 for further rehabilitation. Prior to her stroke she was independent in ambulation and of all ADL's. Her rehab was going fairly well in which she was able to speak clearly and beginning to ambulate with assist. On she was noted to have increased left-sided weakness, new expressive aphasia, and some altered mental status. CT imaging was obtained and revealed a new 2.8 cm right basal ganglia hemorrhage with associated edema and mass effect on the right lateral ventricle with associated 2 mm right to left midline shift. The patient was then discharged from rehab to [facility] for further evaluation and care. Initial evaluation revealed: * Temp 98.3, pulse 50, respiratory rate 21, BP 127/62, pulse oximetry 98% * Last pertinent labs were done 05/02/18 WBC 7.4, neutrophils 77.7, hemoglobin 12.7, hematocrit 38.6, platelets 258 * CT of head - 2.8 cm right basal ganglia hemorrhage with associated edema and mass effect on the right lateral ventricle. There is subtle 2 mm right to left midline shift. Dr. Snowden (neurology) was consulted who recommended strict blood pressure control, follow up, CT, and EEG, all of which are pending at the time of this note. Dr. Rojas (neurosurgery) was consulted but felt that there was no surgical interventions appropriate at this time. He has deferred medical management to neurology. Palliative care was consulted to assist with symptom management including worsening debility, possible pain management, as well as to assist with goals of medical treatment. The patient was examined in the room in conjunction with BRISA Moore. She is awake and partially oriented. She does present with a twitching motion to head and neck that decreases with focus and conversation. EEG team is also present in the room. She is somewhat unclear about her current medical status though she does affirm that she had a stroke and that she is some sort of medical facility. She is able to converse in semi- full sentences. She is weak on the left side and appears to have some left sided neglect. She denies any discomfort except for a mild headache. She wishes for us to discuss her care with her , Femi. Discussion was had at bedside later that day. Her does mention that he has noticed some dementia-like symptoms for the past 3-4 years such as erratic driving, irritability towards TV characters, and forgetfulness. He states she was evaluated by their PCP who felt she was in the possible beginning stages of dementia and recommended pharmacotherapy to which she has been reluctant to take. Function/Cognitive Trajectory: Prior to previous stroke the patient was independent with ambulation and of all ADL's. She was progressing with goals of therapy during her rehab stay until she suffered a new onset hemorrhagic stroke. She is at increased risk for aspiration, airway compromise, and increased debility Review of Systems Neurologic: Reports abnormal movements, Reports headache(s) PMFSH - History History Provided By: Family Member - Medical History Medical History: Medical History (Last Updated 05/12/18 @ 10:27 by BRISA Rico) Cerebral hemorrhage with hemiparesis Depression A-fib DM type 2 (diabetes mellitus, type 2) HTN (hypertension) - Surgical History Surgical History: Surgical History (Last Reviewed 05/12/18 @ 10:27 by BRISA Rico) Hx of CABG S/P ablation of atrial fibrillation - Family History Family History: Family History (Last Updated 05/12/18 @ 16:53 by BRISA Rico) Father Hypertension Stroke Brother Hypertension Sister Multiple sclerosis Mother Dementia Brother Stroke - Tobacco History Second Hand Smoke Exposure: No Smoking Status: Never smoker - Alcohol History How Often Do You Have a Drink Containing Alcohol: Monthly or less - Substance Use History Substance History: No History of Abuse - Immunization History Tetanus Immunization: Unsure Hx Influenza Vaccine This Season: No Medications and Allergies Allergies Allergy/AdvReac Type Severity Reaction Status Date / Time Iodinated Contrast- Oral and Allergy Severe HIVES, Verified 04/29/18 09:15 IV Dye CAN'T BREATHE ammonia Allergy Intermediate SOB Verified 04/29/18 09:15 hydrocodone Allergy Intermediate VOMITING Verified 04/29/18 09:15 penicillin G Allergy Intermediate HIVES, Verified 04/29/18 09:15 THROAT CLOSED Sulfa (Sulfonamide Allergy Intermediate HIVES, Verified 04/29/18 09:15 Antibiotics) THROAT CLOSED tree and shrub pollen Allergy Intermediate SOB Verified 04/29/18 09:15 Home Medications Medication Instructions Recorded Confirmed Type insulin glargine 16 unit SUB-Q DAILY 04/28/18 04/28/18 History multivitamin with minerals 2 tab PO BID 04/28/18 04/28/18 History ondansetron HCl 2 mg/ml IV Q4HR PRN 04/28/18 04/28/18 History Active Medications: Active Medications Acetaminophen (Tylenol) 650 mg PO Q6H PRN PRN Reason: PAIN 1-10 AND/OR FEVER >101F Last Admin: 05/11/18 14:18 Dose: 650 mg Al Hydroxide/Mg Hydroxide (Milk Of Magnesia Liq) 30 ml PO Q12H PRN PRN Reason: Mild Constipation Bisacodyl (Dulcolax Supp) 10 mg RECTAL DAILY PRN PRN Reason: SEVERE CONSITIPATION Chlorhexidine Gluconate (Chlorhexidine 2% Cloth) 3 pack TOPICAL DAILY@0400 [facility] Stop: 05/17/18 03:59 Last Admin: 05/12/18 05:13 Dose: 3 pack Chlorhexidine Gluconate (Chlorhexidine 2% Cloth) 3 pack TOPICAL DAILY@0400 PRN PRN Reason: Extra cloth needed Stop: 05/17/18 03:59 Famotidine (Pepcid Pf Inj) 20 mg IV.PUSH Q12HR [facility] Last Admin: 05/12/18 08:22 Dose: Not Given Potassium Chloride/Sodium Chloride (Ns + Kcl 20 Meq Inj) 1,000 mls @ 75 mls/hr IV.CONT .[id number] [facility] Last Admin: 05/12/18 05:13 Dose: 75 mls/hr Lactulose (Lactulose Liq) 30 ml PO DAILY PRN PRN Reason: SEVERE CONSITIPATION Senna/Docusate Sodium (Jessica-Colace) 1 tab PO BID [facility] Last Admin: 05/12/18 08:22 Dose: Not Given Sennosides (Senokot) 17.2 mg PO Q12H PRN PRN Reason: Moderate Constipation Sodium Chloride (Ns Flush) 2 ml IV.FLUSH BID [facility] Last Admin: 05/12/18 08:23 Dose: Not Given Sodium Chloride (Ns Flush) 2 ml IV.FLUSH PRN PRN PRN Reason: FLUSH AFTER USING IV ACCESS Advance Directives Living Will: Yes Healthcare Surrogate: Yes Health Care Surrogate Name and Number: Femi Carey [phone] Power of Family Lawyer: Yes Power of Family Lawyer Name: Femi Carey Power of Family Lawyer Power of Family Lawyer Relationship to Patient: Spouse Documented care wishes: The patients living will states should the patient be in a terminal or vegetative state she would not want heroic or invasive measure including CPR, intubation, blood, surgery, antibiotics, etc. Today's verbally stated goals: The patient was very clear that she wishes to remain a DNR Family/friends goals: Her states that he would like to be able to get her back to rehab and then home but ultimately wants to honor her wishes should she show any decline. He mention that she would not want to remain paralyzed. Ethical and Legal Issues: At this time the patient is able to participate in her own care. She is clear on what she does not want. Should she become incapacitated in any way, her Femi Carey has been designated as her healthcare surrogate Physical Exam Vital Signs: Vital Signs - 24 hr 05/11/18 11:49 05/11/18 16:00 05/11/18 20:00 Temperature 98.3 F 97.7 F 97.8 F Pulse Rate 50 L 60 70 Respiratory Rate 21 31 H 26 H Blood Pressure 127/62 131/62 132/85 Pulse Oximetry 98 98 96 05/12/18 00:00 05/12/18 04:00 05/12/18 08:00 Temperature 98.3 F 98.4 F 97.8 F Pulse Rate 78 70 88 Respiratory Rate 30 H 27 H 17 Blood Pressure 144/67 H 95/51 L 150/62 H Pulse Oximetry 99 95 I&O: Intake & Output 05/10/18 05/11/18 05/12/18 05/13/18 06:59 06:59 06:59 06:59 Intake Total 950 / 950 Output Total 1400 / 1400 Balance -450 / -450 Weight 86.5 kg Physical Exam: CONSTITUTIONAL/GENERAL: This is an adequately nourished patient, in no apparent distress. TUBES/LINES/DRAINS: PIV SKIN: No jaundice, rashes, or lesions. No wounds seen anteriorly. Skin temperature appropriate. Not diaphoretic. HEAD: Atraumatic. Normocephalic. EYES: Pupils equal and round and reactive. Extraocular motions intact. No scleral icterus. No injection or drainage. Fundi not examined. ENT: Hearing grossly normal. Nose without bleeding or purulent drainage. Throat without visible erythema, exudates, masses, or lesions. NECK: Trachea midline. Supple, nontender. No palpable thyroid enlargement or nodularity. CARDIOVASCULAR: Regular rate and rhythm without murmurs, gallops, or rubs. No JVD. Peripheral pulses symmetric. RESPIRATORY/CHEST: Symmetric, unlabored respirations. Clear to auscultation. Breath sounds equal bilaterally. No wheezes, rales, or rhonchi. GASTROINTESTINAL: Abdomen soft, non-tender, nondistended. No palpable masses. No guarding. Bowel sounds present. GENITOURINARY: Without palpable bladder distension. MUSCULOSKELETAL: Extremities without clubbing, cyanosis, or edema. No joint tenderness or effusion noted. No calf tenderness. No mottling or clubbing. NEUROLOGICAL: Awake and alert. She knows that she is in rehab but not able to verbalize her current health situation. Stated that the year was 2016 and would not name the president. Unable to lift left upper and lower extremity off the bed, 0/5 mold dresser strength on the left. Does appear to have some left sided neglect. Tremor/twitching motion of head and neck which seemed to decrease with focus and conversation and increase at rest PSYCHIATRIC: No obvious anxiety/depression. no apparent hallucinations or other psychotic thought process. Diagnostic Tests Laboratory: Laboratory Results - last 72 hr 05/11/18 05/12/18 12:20 06:30 Sodium 143 Potassium 4.0 Chloride 112 H Carbon Dioxide 17.9 L Anion Gap 13 BUN 25 H Creatinine 0.91 Estimated GFR 61 L Random Glucose 140 H Calcium 9.0 Nasal Screen MRSA (PCR) Mrsa detected Result Diagrams: 05/12/18 06:30 Imaging: Impressions Head CT 05/12/18 09:08 CONCLUSION: 1. Intraparenchymal hemorrhage involving the right basal ganglia unchanged from previous exam. No new areas of hemorrhage are seen. Procedures: EEG 05/12/18 - results pending Patient/Family Conference Present at Family Conference: BRISA Moore RN Family Conference Location: Bedside Issues Discussed: Discussed with patient at bedside the following: * Additional medical, psychosocial, and spiritual history * Patients general health, functional status, and cognitive changes in the months leading up to the current hospitalization * Patient/family understanding of the current medical problems; the patient has some limited insight has to her current situation though she is aware that she had a stroke. Briefly reviewed overall condition and pending diagnostics * Patients goals of care as best understood from advance directives and/or conversations and/or values; patient was very clear about her wishes for DNR * Briefly explored hospice and comfort measures should the patient decline further * Questions answered to the best of my ability * Palliative care contact information provided Femi was updated at the bedside with myself and BRISA Moore later this afternoon In summary, Mrs. Carey appears to have some limited understanding of her current medical status. She has a clear advance directive in place should her status decline further. Her , Femi offers good support and is well aware of her wishes and has been appointed her healthcare surrogate. She would like to get well enough to go back to rehab and ultimately return home. Assessment and Plan - Disease Oriented Problem List (1) Nontraumatic intracerebral hemorrhage of basal ganglia - Symptom Scale (1) Dysphagia 0-10 Scale: 1 (2) Debility 0-10 Scale: Unable to quantify (3) Pain after cerebrovascular accident (CVA) 0-10 Scale: Unable to quantify Pertinent Non-Medical Issues: Psychosocial: The patient is currently . 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 They do not have any children together Spiritual: Baptism, the has already arranged for a spiritual visit Legal: No known legal issues at this time Ethical issues impacting care: There are currently no know ethical issues impacting Mrs. Carey's care at this time. Important Contacts: Femi Carey, /[facility] [phone] Margoth Mitchell, niece, alternate HCS Prognosis: Given that Mrs. Carey has suffered 2 significant hemorrhagic strokes in the past few weeks, and a probably underlying history of dementia, she is at an increased risk for worsening debility and mortality. She does have the possibility of associated comorbidities revolving around stroke including dysphagia, aspiration, seizures, etc as well as a propensity for repeat stroke. Code Status: No Code DNR Plan: * LEGAL DECISION MAKER: The patient has named her Femi Carey her healthcare surrogate. Hard copies are in the chart and a copy has been send to health information management to be scanned into the EMR. . * GOALS: Mrs. Carey appears to have some limited understanding of her current medical status. She has a clear advance directive in place should her status decline further. Her , Femi offers good support and is well aware of her wishes and has been appointed her healthcare surrogate. She would like to get well enough to go back to rehab and ultimately return home. * CODE STATUS: DNR, written advance directives are located in the hard chart and electronic medical records. The patient was also able to verbalize her wishes today. * SYMPTOMS: Debility - swallowing function appears to be intact and she has been placed on mechanical soft with nectar thick liquids. Would continue to monitor for any dysphagia. Continue with ST recommendations. Lethargy - her states this has been an issue even while she was at rehab. He states she would sleep 12-15h a day. Neurology is considering adding Provigil. Pain - complains of minor headache. Given her increased somnolence and questionable mental status, any recommendations will be judicious at best. Palliative care will continue to follow during the hospital course as her condition evolves, to assist the patient/decision-maker with understanding of medical conditions, weight benefits/burdens of treatment options, and for clarification of gaols of treatment. Additionally will assist with any symptoms of palliative concern. * Appreciation Thank you for the opportunity to participate in the care of Adelita Carey. Attestation Collaborating Comments: Dual visit shelbie LEDEZMA. Concur with above documentation/plan. Attestation: To help prompt me to consider important information that might be impacting today's encounter and assessment, information from prior notes written by myself or my colleagues may have been "brought forward" into today's note. My signature on this note, however, is an attestation that I personally performed the exam, history, and/or decision-making noted today, and, unless otherwise indicated, the interactions with patient, family, and staff as well as the review of records all occurred today. I also attest that the listed assessment and stated plan reflect my best clinical judgment today based on the combination of historical information, prior notes, and today's exam/ interactions. When time spent is documented, it refers only to time spent today by the signer, or if indicated, combined time spent today by collaborating physician/nurse practitioner.
--- NOTE | 2018-05-12 10:48 | CT ---
EXAM DATE: 05/12/2018 9:46 AM EDT AGE/SEX: 73 years / Female INDICATIONS: Follow up bleed CLINICAL DATA: This is the patient's subsequent encounter. Patient reports that signs and symptoms h ave been present for 2 days and indicates a pain score of Nonresponsive. MEDICAL/SURGICAL HISTORY: Diabetes. Hypertension. None. RADIATION DOSE: 33.84 CTDI (mGy) COMPARISON: [facility], CT HEAD W/O CONTRAST, 05/11/2018. . TECHNIQUE: CT of the head without contrast. Using automated exposure control and adjustment of the mA and/or kV according to patient size, radiation dose was kept as low as reasonably achievable to ob tain optimal diagnostic quality images. DICOM format image data is available electronically for revi ew and comparison. FINDINGS: The examination demonstrates an area of intraparenchymal hemorrhage within the basal ganglia on the r ight. There is some surrounding edema. There is no significant mass effect associated with this. Dire ct comparison is made to the examination of 05/11/2018. There is no significant interval change. The ventricles are normal in size and configuration. No extra-axial fluid collections are seen. No ma ss lesion is identified. The appearance of the posterior fossa is unremarkable. The osseous structures of the skull are intact. CONCLUSION: 1. Intraparenchymal hemorrhage involving the right basal ganglia unchanged from previous exam. No ne w areas of hemorrhage are seen. Electronically signed by: Richar Noel MD 05/12/2018 10:47 AM EDT
[2018-05-12] MEDS: Acetaminophen 325 MG Tablet PO PRN (14:45)
[2018-05-13] MEDS: Chlorhexidine Gluconate 2% 1 Pack (2 Cloths) TOPICAL SCH (05:47)
--- NOTE | 2018-05-13 07:38 | P.PNCC ---
Subjective Subjective Remarks/Hospital Course: 73 y/o woman developed acute expressive aphasia earlier today while on the [facility] rehab service. CAT scan of the head reveals a new basal ganglia hemorrhage. I discussed the patient with Dr. Vu and arrangements for transfer were made to the intensive surgical care unit. Recent history includes a hemorrhagic stroke on April 18 resulting in dense left sided hemiplegia following which she was receiving rehab care at [facility]. She is a 73- year-old female, [id number] with past medical history of hypertension, diabetes mellitus type 2 on oral agent at home, atrial fibrillation status post ablation and depression. In her usual state of health which included independence in ambulation and self-care until 04/18/2018 when she was admitted to [facility] after she slumped forward while sitting in a chair falling to the ground. states the patient did not hit her head, she had immediate left-sided weakness and was brought in as a stroke alert. Dr Jeison Black, tele-neurology consult. Also noted on exam was right gaze preference and hypersensitivity left upper and left lower extremity. CT scan of the head showed a right sided intracerebral hemorrhage involving the thalamic region and the internal capsule with mild mass-effect over the right lateral ventricle she was conscious on arrival and able to protect her airway. Her blood pressure was elevated. Chest x-ray showed cardiomegaly, poststernotomy and possibly mild CHF. 05/12: Speech remains impaired. I think she is oriented to herself but little else. She has a very specific advanced directive which I will ask palliative care to help me navigate. 05/13: Appeared more oriented as the day progressed yesterday. Has expressed to the palliative care service her wishes to follow her advanced directive. She now swallows safely and appears to protect her airway adequately. Objective Vital Signs / I&O: Vital Signs 05/12/18 08:00 05/12/18 12:00 05/12/18 16:00 Temperature 97.8 F 98.8 F 97.9 F Pulse Rate 88 65 Respiratory Rate 17 24 20 Blood Pressure 150/62 H 140/64 144/76 H Pulse Oximetry 95 05/12/18 20:00 05/13/18 00:00 05/13/18 04:00 Temperature 98.5 F 98.3 F Pulse Rate 68 66 Respiratory Rate 24 14 20 Blood Pressure 149/69 H 154/71 H Pulse Oximetry 97 98 Intake & Output 05/12/18 05/13/18 05/13/18 18:59 06:59 18:59 Intake Total 944 / 944 1999 Output Total 650 / 650 Balance 294 / 294 1999 Intake: IV 584 / 584 1999 NS + KCl 20 mEq Inj 1,000 ML @ 584 / 584 1999 75 mls/hr IV.CONT .[id number] [facility] Rx#:[id number] Oral 360 / 360 Output: Urine Amount (Catheter) 650 / 650 Straight 650 / 650 Result Diagrams: 05/12/18 06:30 Objective Remarks: Exam Narrative: General: No acute distress, anxious HEENT: Normocephalic, atraumatic. PERRL, conjunctiva pink, sclera nonicteric. Respiratory: Lungs clear, non-labored respirations, BS equal, Symmetrical expansion of chest wall Gastrointestinal: Positive bowel sounds, Nondistended (Soft), Non-tender. Cardiovascular: Normal rate, Intact pulses, Normal peripheral perfusion, No edema, Regular rhythm, no JVD Musculoskeletal: ROM (No restrictions on passive and active range of motion) Psychiatric: Cooperative, Appropriate mood & affect Neuro: Dense left hemiplegia, chronic. Tongue protrudes to left side. No left sided shoulder shrug. EOMs intact. Moves right side with normal strength. Airway widely patent, handle secretions acceptably. Assessment and Plan - Assessment and Plan Plan: Assessment and Plan - Diagnosis (1) Nontraumatic intracerebral hemorrhage of basal ganglia Onset Date: ~04/18/18 Status: Acute (2) Acute respiratory failure with hypoxia Onset Date: ~04/18/18 Status: Acute (3) Impaired mobility and ADLs Onset Date: ~04/18/18 Status: Acute (4) Dysphagia Onset Date: ~04/18/18 Status: Acute (5) Poorly controlled diabetes mellitus Onset Date: ~04/18/18 Status: Acute (6) S/P ablation of atrial fibrillation Status: Acute (7) Hypertension Onset Date: ~04/18/18 Status: Acute (9) Aspiration pneumonia Onset Date: ~04/19/18 Status: Acute -Plan (1) Nontraumatic intracerebral hemorrhage of right basal ganglia Right sided thalamic stroke April 18, 2018, now new right sided basal ganglia stroke with Left hemiplegia May 11 (2) Impaired mobility and ADLs Plan: Consult PT and OT to evaluate and treat Onset Date: ~04/18/18 Status: Acute (3) Dysphagia Plan: Maintain ADA diet, mechanical soft with chopped meats and gravy, nectar thick liquids. Speech therapy to evaluate and treat Onset Date: ~04/18/18 Status: Acute (4) Poorly controlled diabetes mellitus Plan: Hold Lantus 16 units every morning will start before meals at bedtime insulin sliding scale. Once she can take ADA diet reinstitute, probably at a lower coverage. Onset Date: ~04/18/18 Status: Acute (5) S/P ablation of atrial fibrillation Plan: Hold anticoagulants at present due to intracerebral bleed Status: Acute (6) Hypertension Plan: Poorly controlled on initial presentation with acute stroke/bleed, maintain systolic pressure less than 160. Patient is on new multi drug regimen. Hospitalist consultation for ongoing care. Monitor blood pressure monitoring of vital signs and tolerance to exercise in therapy to ensure stable heart rate and BP and adequate perfusion, monitor for arrhythmia, adjustment of medications , monitoring for side effects of medications Onset Date: ~04/18/18 Status: Acute (7) Aspiration pneumonia Plan: Speech therapy to evaluate and treat for swallow. Maintain diet mechanical soft , nectar thick liquids. Complete course of clindamycin and Ceftin. Monitor WBC, vital signs/ temperature. Optimize pulmonary function and monitor oximetry and tolerance to exercise in therapy Onset Date: ~04/19/18 Status: Acute Overall impression: She appears to be approaching the condition for which her advanced directive will become operative. She is still able to express her wishes clearly. We will continue blood pressure and diabetes management. Follow neurologic status closely.
[2018-05-13] MEDS ORDERED: Dextrose 50% in Water 50 ML Vial IV.PUSH PRN (07:39)
--- NOTE | 2018-05-13 08:07 | P.PNNEU ---
Subjective Subjective Comments: No acute events denies any headache chest pain or dyspnea Active Medications: Active Medications Acetaminophen (Tylenol) 650 mg PO Q6H PRN PRN Reason: PAIN 1-10 AND/OR FEVER >101F Last Admin: 05/12/18 14:45 Dose: 650 mg Al Hydroxide/Mg Hydroxide (Milk Of Magnesia Liq) 30 ml PO Q12H PRN PRN Reason: Mild Constipation Bisacodyl (Dulcolax Supp) 10 mg RECTAL DAILY PRN PRN Reason: SEVERE CONSITIPATION Chlorhexidine Gluconate (Chlorhexidine 2% Cloth) 3 pack TOPICAL DAILY@0400 [facility] Stop: 05/17/18 03:59 Last Admin: 05/13/18 05:47 Dose: 3 pack Chlorhexidine Gluconate (Chlorhexidine 2% Cloth) 3 pack TOPICAL DAILY@0400 PRN PRN Reason: Extra cloth needed Stop: 05/17/18 03:59 Dextrose (D50w Vial) 50 ml IV.PUSH UNSCH PRN PRN Reason: PER HYPOGLYCEMIA PROTOCOL Famotidine (Pepcid Pf Inj) 20 mg IV.PUSH Q12HR [facility] Last Admin: 05/12/18 20:51 Dose: 20 mg Glucagon (Glucagon Inj) 1 mg OTHER PRN PRN PRN Reason: for Hypoglycemia Protocol Potassium Chloride/Sodium Chloride (Ns + Kcl 20 Meq Inj) 1,000 mls @ 75 mls/hr IV.CONT .[id number] [facility] Last Admin: 05/13/18 05:48 Dose: 75 mls/hr Insulin Aspart (Novolog Insulin Correctional Sugar Inj) 0 unit SQ Q6HR [facility]; Protocol Lactulose (Lactulose Liq) 30 ml PO DAILY PRN PRN Reason: SEVERE CONSITIPATION Senna/Docusate Sodium (Jessica-Colace) 1 tab PO BID [facility] Last Admin: 05/12/18 20:51 Dose: 1 tab Sennosides (Senokot) 17.2 mg PO Q12H PRN PRN Reason: Moderate Constipation Sodium Chloride (Ns Flush) 2 ml IV.FLUSH BID [facility] Last Admin: 05/12/18 20:51 Dose: 2 ml Sodium Chloride (Ns Flush) 2 ml IV.FLUSH PRN PRN PRN Reason: FLUSH AFTER USING IV ACCESS Allergies/Adverse Reactions: Allergies Allergy/AdvReac Type Severity Reaction Status Date / Time Iodinated Contrast- Oral and Allergy Severe HIVES, Verified 04/29/18 09:15 IV Dye CAN'T BREATHE ammonia Allergy Intermediate SOB Verified 04/29/18 09:15 hydrocodone Allergy Intermediate VOMITING Verified 04/29/18 09:15 penicillin G Allergy Intermediate HIVES, Verified 04/29/18 09:15 THROAT CLOSED Sulfa (Sulfonamide Allergy Intermediate HIVES, Verified 04/29/18 09:15 Antibiotics) THROAT CLOSED tree and shrub pollen Allergy Intermediate SOB Verified 04/29/18 09:15 Review of Systems All other systems reviewed negative except as stated in HPI Physical Exam Vital signs: Vital Signs 05/12/18 12:00 05/12/18 16:00 05/12/18 20:00 Temperature 98.8 F 97.9 F 98.5 F Pulse Rate 65 68 Respiratory Rate 24 20 24 Blood Pressure 140/64 144/76 H 149/69 H Pulse Oximetry 95 97 05/13/18 00:00 05/13/18 04:00 Temperature 98.3 F 98.3 F Pulse Rate 66 63 Respiratory Rate 14 21 Blood Pressure 154/71 H 150/72 H Pulse Oximetry 98 96 Intake & Output 05/12/18 05/13/18 05/13/18 18:59 06:59 18:59 Intake Total 944 / 944 2200 / 2200 Output Total 650 / 650 700 / 700 Balance 294 / 294 1500 / 1500 Weight 90 kg Intake: IV 584 / 584 1999 NS + KCl 20 mEq Inj 1,000 ML @ 584 / 584 1999 75 mls/hr IV.CONT .[id number] [facility] Rx#:[id number] Oral 360 / 360 200 / 200 Output: Urine Amount (Catheter) 650 / 650 700 / 700 Straight 650 / 650 700 / 700 Narrative: GENERAL: in nad SKIN: Warm and dry. HEAD: Atraumatic. Normocephalic. EYES: Pupils equal and round. No scleral icterus. ENT: No nasal bleeding or discharge. Mucous membranes pink and moist. NECK: Trachea midline. No JVD. CARDIOVASCULAR: Regular rate and rhythm. RESPIRATORY: Mild accessory muscle use. GASTROINTESTINAL: Abdomen soft, non-tender, nondistended. MUSCULOSKELETAL: Extremities without clubbing, cyanosis, or edema. No obvious deformities. NEUROLOGICAL: Alerts and follows simple request, ox 1, follows, no tremor, left neglect, OU 3.5 to approximately 3 mm, right gaze preference left facial droop left spastic hemiplegia able to raise right arm and right leg PSYCHIATRIC: Appears calm - Constitutional no acute distress - Routine HEENT Exam Head: Present: normocephalic - Urinary Catheter Management Straight Cath placed during this visit: no Review/Management - Diagnosis (1) Nontraumatic intracerebral hemorrhage of basal ganglia Code(s): I61.9 - Nontraumatic intracerebral hemorrhage, unspecified; Z86.79 - Personal history of other diseases of the circulatory system Status: Chronic Onset Date: ~04/18/18 Current Visit: Yes (2) Hypertension Code(s): I10 - Essential (primary) hypertension Status: Chronic Onset Date: ~04/18/18 Current Visit: No (3) Depression Code(s): F32.9 - Major depressive disorder, single episode, unspecified Status : Chronic Current Visit: No (4) S/P ablation of atrial fibrillation Code(s): Z98.890 - Other specified postprocedural states; Z86.79 - Personal history of other diseases of the circulatory system Status: Chronic Current Visit: No (5) CHF (congestive heart failure) Code(s): I50.9 - Heart failure, unspecified Status: Chronic Current Visit: Yes - Review/Management Plan: Possible anticoagulant related intracerebral hemorrhage Has been stable since she has been in the intensive care unit. Not quite clear why she was transferred from rehab to the ICU Recommendations CT brain scan reviewed. Stable right striatal capsular hemorrhage. Mild edema no intraventricular extension no significant shift looks quite stable I think she should do well in the long run as the hemorrhage resolves Start Provigil Back to rehab from neurology standpoint Therapy Follow exam Discussed with RN (2) Hypertension Qualifiers: Hypertension type: essential hypertension Qualified Code(s): I10 - Essential (primary) hypertension (3) Depression Qualifiers: Depression Type: dysthymia Qualified Code(s): F34.1 - Dysthymic disorder
[2018-05-13] MEDS: Famotidine PF Inj 20 MG/2 ML Vial IV.PUSH SCH ×2 (08:51→20:11)
[2018-05-13] MEDS: Senna/Docusate Sodium 8.6/50 MG Tablet PO SCH ×2 (08:52→20:11)
[2018-05-13] MEDS: Modafinil 200 MG Tablet PO SCH (09:45)
--- NOTE | 2018-05-13 10:51 | MG ---
cc: Christopher Toro MD EEG NUMBER: [id number] INDICATIONS: Expressive aphasia, cerebral hemorrhage, history of atrial fibrillation. INTERPRETATION: Diffuse slowing is seen in the 4-6 Hz range. No epileptiform or seizure activity is noted. I would not say there is any definite hemisphere asymmetry. Mild attenuation may be seen over the right temporal head region. IMPRESSION: Diffuse slowing is noted. No epileptiform or seizure activity is noted. No major hemisphere asymmetry is noted. Christopher Toro MD DJM/rs , 10:42 AM , 10:45 AM
[2018-05-13] MEDS: Insulin NovoLOG Aspart Correctional Sugar Inj SQ SCH ×2 (14:35→18:20)
[2018-05-13] MEDS: Acetaminophen 325 MG Tablet PO PRN (14:51)
--- NOTE | 2018-05-13 15:20 | P.PNPAL ---
Reason for Visit Reason for visit: a. To assist with evaluation and management of symptoms including: debility b. To assist medical decision maker(s) with: better understanding of current medical conditions; weighing benefits/burdens of medical treatment options; making medical treatment decisions. Subjective Subjective/Interval History: Patient is seen today to follow up with possible debility and comfort. No new bleeding was noted on 05/12/18 CT. Labs stable, VSS The patient was lethargic but easily arousable. She was chanting the phrase ' ice cream good, medicine bad', though when I spoke to her she was able to answer questions appropriately. She is still flaccid on the left. She complains of some intermittent pain to her legs that she states is chronic and relieved with Tylenol. EEG showed some diffuse slowing but no seizure activity. Per neurology note patient cleared for rehab. Family/Friend Interactions: Discussion via phone with later that day confirmed that she has been accepted back to [facility], hopefully to be transferred in the morning. We did briefly discuss that she would most likely be starting over in terms of any progress that was made with therapy and she may not be able to return to her baseline before her previous stroke. Advance Directives Living Will: Copy in medical record Health Care Surrogate: Copy in medical record Durable Power of Audiometrist: Copy in medical record Health Care Surrogate Name and Number: Femi Carey [phone] Documented care wishes:: The patients living will states should the patient be in a terminal or vegetative state she would not want heroic or invasive measure including CPR, intubation, blood, surgery, antibiotics, etc. Significant change in goals:: No significant change in goals at this time Objective Vital Signs: Vital Signs 05/12/18 16:00 05/12/18 20:00 05/13/18 00:00 Temperature 97.9 F 98.5 F 98.3 F Pulse Rate 65 68 66 Respiratory Rate 20 24 14 Blood Pressure 144/76 H 149/69 H 154/71 H Pulse Oximetry 95 97 98 05/13/18 04:00 05/13/18 08:00 Temperature 98.3 F Pulse Rate 63 65 Respiratory Rate 21 15 Blood Pressure 150/72 H Pulse Oximetry 96 Intake & Output 05/12/18 05/13/18 05/13/18 18:59 06:59 18:59 Intake Total 944 / 944 2200 / 2200 Output Total 650 / 650 700 / 700 Balance 294 / 294 1500 / 1500 Weight 90 kg Intake: IV 584 / 584 1999 NS + KCl 20 mEq Inj 1,000 ML @ 584 / 584 1999 75 mls/hr IV.CONT .[id number] [facility] Rx#:[id number] Oral 360 / 360 200 / 200 Output: Urine Amount (Catheter) 650 / 650 700 / 700 Straight 650 / 650 700 / 700 Physical Exam: CONSTITUTIONAL/GENERAL: This is an adequately nourished patient, in no apparent distress. TUBES/LINES/DRAINS: PIV SKIN: No jaundice, rashes, or lesions. No wounds seen anteriorly. Skin temperature appropriate. Not diaphoretic. HEAD: Atraumatic. Normocephalic. EYES: Pupils equal and round and reactive. Extraocular motions intact. No scleral icterus. No injection or drainage. Fundi not examined. CARDIOVASCULAR: Regular rate and rhythm without murmurs, gallops, or rubs. No JVD. Peripheral pulses symmetric. SR on tele RESPIRATORY/CHEST: Symmetric, unlabored respirations. Clear to auscultation. Breath sounds equal bilaterally. No wheezes, rales, or rhonchi. GASTROINTESTINAL: Abdomen soft, non-tender, nondistended. No palpable masses. No guarding. Bowel sounds present. MUSCULOSKELETAL: Extremities without clubbing, cyanosis, or edema. No joint tenderness or effusion noted. No calf tenderness. No mottling or clubbing. NEUROLOGICAL: Lethargic but arousable. Unable to lift left upper and lower extremity off the bed, 0/5 poundmaster strength on the left. Does appear to have some left sided neglect. Tremor/twitching motion of head and neck which seemed to decrease with focus and conversation and increase at rest Diagnostic Tests Laboratory: Laboratory Results - last 72 hr 05/11/18 05/12/18 12:20 06:30 Sodium 143 Potassium 4.0 Chloride 112 H Carbon Dioxide 17.9 L Anion Gap 13 BUN 25 H Creatinine 0.91 Estimated GFR 61 L Random Glucose 140 H Calcium 9.0 Nasal Screen MRSA (PCR) Mrsa detected Result Diagrams: 05/12/18 06:30 Imaging: Impressions Head CT 05/12/18 09:08 CONCLUSION: 1. Intraparenchymal hemorrhage involving the right basal ganglia unchanged from previous exam. No new areas of hemorrhage are seen. Procedures: EEG 05/12/18 - Diffuse slowing, no seizure activity Assessment and Plan - Disease Oriented Problem List (1) Nontraumatic intracerebral hemorrhage of basal ganglia - Symptom Scale (1) Debility 0-10 Scale: Unable to quantify (2) Dysphagia 0-10 Scale: 0 (3) Pain after cerebrovascular accident (CVA) 0-10 Scale: 1 Pertinent Non-Medical Issues: Psychosocial: The patient is currently . 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 They do not have any children together Spiritual: Congregational, the has already arranged for a spiritual visit Legal: No known legal issues at this time Ethical issues impacting care: There are currently no know ethical issues impacting Mrs. Carey's care at this time. Important Contacts: Femi Carey, /[facility] [phone] Margoth Mitchell, niece, alternate HCS Prognosis: Given that Mrs. Carey has suffered 2 significant hemorrhagic strokes in the past few weeks, and a probably underlying history of dementia, she is at an increased risk for worsening debility and mortality. She does have the possibility of associated comorbidities revolving around stroke including dysphagia, aspiration, seizures, etc as well as a propensity for repeat stroke. Code Status: No Code DNR Plan: * LEGAL DECISION MAKER: The patient has named her Femi Carey her healthcare surrogate. Hard copies are in the chart and a copy has been send to health information management to be scanned into the EMR. . * GOALS: Mrs. Carey appears to have some limited understanding of her current medical status. She has a clear advance directive in place should her status decline further. Her , Femi offers good support and is well aware of her wishes and has been appointed her healthcare surrogate. She would like to get well enough to go back to rehab and ultimately return home. * CODE STATUS: DNR, written advance directives are located in the hard chart and electronic medical records. The patient was also able to verbalize her wishes today. * SYMPTOMS: Debility - swallowing function and airway protection remain intact. Patient was able to feed herself with assist on the right side. Would continue to monitor for any dysphagia. Continue with ST recommendations. Lethargy - was started on Provigil today. Pain - patient appears comfortable at this time, would again suggest judicious use of any agents used for pain control until she becomes more alert Palliative care will continue to follow during the hospital course as her condition evolves, to assist the patient/decision-maker with understanding of medical conditions, weight benefits/burdens of treatment options, and for clarification of gaols of treatment. Additionally will assist with any symptoms of palliative concern. * Attestation Attestation: To help prompt me to consider important information that might be impacting today's encounter and assessment, information from prior notes written by myself or my colleagues may have been "brought forward" into today's note. My signature on this note, however, is an attestation that I personally performed the exam, history, and/or decision-making noted today, and, unless otherwise indicated, the interactions with patient, family, and staff as well as the review of records all occurred today. I also attest that the listed assessment and stated plan reflect my best clinical judgment today based on the combination of historical information, prior notes, and today's exam/ interactions. When time spent is documented, it refers only to time spent today by the signer, or if indicated, combined time spent today by collaborating physician/nurse practitioner.
--- NOTE | 2018-05-13 16:02 | P.DS ---
Date of admission: 05/11/18 11:31 Primary care physician: UNKNOWN Attending physician on discharge: Yunior Valle Brief History from admission: 73 y/o woman developed acute expressive aphasia earlier today while on the [facility] rehab service. CAT scan of the head reveals a new basal ganglia hemorrhage. I discussed the patient with Dr. Vu and arrangements for transfer were made to the intensive surgical care unit. Recent history includes a hemorrhagic thalamic stroke on April 18 resulting in dense left sided hemiplegia following which she was receiving rehab care at [facility]. She is a 73-year-old female, [id number] with past medical history of hypertension, diabetes mellitus type 2 on oral agent at home, atrial fibrillation status post ablation and depression. In her usual state of health which included independence in ambulation and self-care until 04/18/2018 when she was admitted to [facility] after she slumped forward while sitting in a chair falling to the ground. states the patient did not hit her head, she had immediate left-sided weakness and was brought in as a stroke alert. Dr Jeison Black, tele-neurology consult. Also noted on exam was right gaze preference and hypersensitivity left upper and left lower extremity. CT scan of the head showed a right sided intracerebral hemorrhage involving the thalamic region and the internal capsule with mild mass-effect over the right lateral ventricle she was conscious on arrival and able to protect her airway. Her blood pressure was elevated. Chest x-ray showed cardiomegaly, poststernotomy and possibly mild CHF. Patient update on day of discharge: Speech slightly improved. Breathing comfortably DS: Diagnosis - Discharge Diagnosis (1) Pain after cerebrovascular accident (CVA) Status: Acute (2) Nontraumatic intracerebral hemorrhage of basal ganglia Status: Chronic (3) Dysphagia Status: Acute (4) Poorly controlled diabetes mellitus Status: Acute DS: Summary Hospital Course: 73 y/o woman developed acute expressive aphasia earlier today while on the [facility] rehab service. CAT scan of the head reveals a new basal ganglia hemorrhage. I discussed the patient with Dr. Vu and arrangements for transfer were made to the intensive surgical care unit. Recent history includes a hemorrhagic stroke on April 18 resulting in dense left sided hemiplegia following which she was receiving rehab care at [facility]. She is a 73- year-old female, [id number] with past medical history of hypertension, diabetes mellitus type 2 on oral agent at home, atrial fibrillation status post ablation and depression. In her usual state of health which included independence in ambulation and self-care until 04/18/2018 when she was admitted to [facility] after she slumped forward while sitting in a chair falling to the ground. states the patient did not hit her head, she had immediate left-sided weakness and was brought in as a stroke alert. Dr Jeison Black, tele-neurology consult. Also noted on exam was right gaze preference and hypersensitivity left upper and left lower extremity. CT scan of the head showed a right sided intracerebral hemorrhage involving the thalamic region and the internal capsule with mild mass-effect over the right lateral ventricle she was conscious on arrival and able to protect her airway. Her blood pressure was elevated. Chest x-ray showed cardiomegaly, poststernotomy and possibly mild CHF. 05/12: Speech remains impaired. I think she is oriented to herself but little else. She has a very specific advanced directive which I will ask palliative care to help me navigate. 05/13: Appeared more oriented as the day progressed yesterday. Has expressed to the palliative care service her wishes to follow her advanced directive. She now swallows safely and appears to protect her airway adequately. - Time Spent with Patient Total time spent providing and/or coordinating discharge services: Greater than 30 minutes - Quality: VTE Deep Vein Thrombosis/Pulmonary Embolism Present on Admission: No Exam Vital signs: Vital Signs 05/12/18 20:00 05/13/18 00:00 05/13/18 04:00 Temperature 98.5 F 98.3 F 98.3 F Pulse Rate 68 66 63 Respiratory Rate 24 14 21 Blood Pressure 149/69 H 154/71 H 150/72 H Pulse Oximetry 97 98 96 05/13/18 08:00 Temperature Pulse Rate 65 Respiratory Rate 15 Blood Pressure Pulse Oximetry Intake & Output 05/12/18 05/13/18 05/13/18 18:59 06:59 18:59 Intake Total 944 / 944 2200 / 2200 Output Total 650 / 650 700 / 700 Balance 294 / 294 1500 / 1500 Weight 90 kg Intake: IV 584 / 584 1999 NS + KCl 20 mEq Inj 1,000 ML @ 584 / 584 1999 75 mls/hr IV.CONT .[id number] [facility] Rx#:[id number] Oral 360 / 360 200 / 200 Output: Urine Amount (Catheter) 650 / 650 700 / 700 Straight 650 / 650 700 / 700 Narrative: Breathing comfortably. Speech improved modestly. BP well controlled. Results Procedures completed during hospitalization: none - Impressions ITS Impressions Head CT 05/12/18 09:08 CONCLUSION: 1. Intraparenchymal hemorrhage involving the right basal ganglia unchanged from previous exam. No new areas of hemorrhage are seen. Discharge Plan - Discharge Disposition Patient Disposition: 62 Rehab Inpatient - Discharge Condition Condition: Fair - Discharge Order Discharge Orders: Discharge Order (Routine); Ordered 05/14/18 Ordered By: Yunior Valle - Discharge Details Anticipated Discharge Date: 05/14/18 - Physicians Team Primary Care Provider: UNKNOWN, Attending Provider: Yunior Valle Other Providers: Beto Rojas MD ; Femi Sanders MD, PhD ; Amy Arreola MD - Rxs /Orders / Referrals /Forms Prescriptions: Continue acetaminophen 325 mg Tablet 650 mg PO Q8H PRN (Reason: Pain Scale 1 To 4/Cough) RF: 0 acetaminophen 325 mg Tablet 650 mg PO HS RF: 0 acidophilus-sporogenes [Acidophilus Ex Str (L. sporog)] 35 million- 25 million cell Tablet 1 tab PO BID RF: 0 amlodipine [Norvasc] 5 mg Tablet 5 mg PO BID RF: 0 atorvastatin [Lipitor] 10 mg Tablet 10 mg PO DAILY RF: 0 clonidine HCl [Catapres] 0.1 mg Tablet 0.1 mg PO Q6H PRN (Reason: Sys Bp Greater Than 180 Mmhg) RF: 0 enalapril maleate 10 mg Tablet 20 mg PO BID RF: 0 famotidine 20 mg Tablet 20 mg PO BID RF: 0 fenofibrate nanocrystallized 145 mg Tablet 145 mg PO HS RF: 0 hydralazine 50 mg Tablet 75 mg PO TID RF: 0 hydrochlorothiazide 25 mg Tablet 25 mg PO DAILY RF: 0 insulin aspart U-100 [Novolog U-100 Insulin aspart] 100 unit/mL Solution 0 unit subcut ACHS RF: 0 insulin glargine 100 unit/mL Solution 16 unit SUB-Q DAILY ipratropium-albuterol 0.5 mg-3 mg(2.5 mg base)/3 mL Solution For Nebulization 1 amp INH Q6HR NEB PRN (Reason: Shortness Of Breath) RF: 0 lidocaine [Lidoderm] 5 % Adhesive Patch,Medicated 1 patch Transdermal DAILY RF: 0 magnesium hydroxide [Milk of Magnesia] 400 mg/5 mL Suspension 30 ml PO Q12H PRN (Reason: Mild Constipation) RF: 0 metoprolol tartrate 25 mg Tablet 25 mg PO BID RF: 0 mirtazapine 15 mg Tablet 15 mg PO HS RF: 0 multivitamin with minerals Tablet 2 tab PO BID ondansetron 4 mg Tablet,Disintegrating 4 mg PO Q4H PRN (Reason: Nausea Or Vomiting) RF: 0 ondansetron HCl 2 mg/mL Solution 2 mg/ml IV Q4HR PRN (Reason: Nausea And Vomiting) potassium chloride 20 mEq Tablet,Er Particles/Crystals 20 meq PO DAILY RF: 0 pramoxine 1 % Foam 1 applicatio ME Q6H PRN (Reason: Hemorrhoids) RF: 0 tamsulosin 0.4 mg Capsule 0.4 mg PO DAILY RF: 0 Referrals: UNKNOWN, [Primary Care Provider] - See Instructions
[2018-05-14] MEDS: Insulin NovoLOG Aspart Correctional Sugar Inj SQ SCH ×3 (01:00→12:32)
[2018-05-14 05:04] LABS: Calcium 8.5 mg/dL (8.5-10.1); Potassium 3.7 meq/L (3.5-5.1)
[2018-05-14] MEDS: Chlorhexidine Gluconate 2% 1 Pack (2 Cloths) TOPICAL SCH (05:34)
--- NOTE | 2018-05-14 08:45 | P.DS ---
Date of admission: 05/11/18 11:31 Primary care physician: UNKNOWN Attending physician on discharge: Yunior Valle Brief History from admission: 73 y/o woman developed acute expressive aphasia earlier today while on the [place] rehab service. CAT scan of the head reveals a new basal ganglia hemorrhage. I discussed the patient with Dr. Vu and arrangements for transfer were made to the intensive surgical care unit. 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 She is a 73-year-old female, [id number] with past medical history of hypertension, diabetes mellitus type 2 on oral agent at home, atrial fibrillation status post ablation and depression. In her usual state of health which included independence in ambulation and self-care until 04/18/2018 when she was admitted to [facility] after she slumped forward while sitting in a chair falling to the ground. states the patient did not hit her head, she had immediate left-sided weakness and was brought in as a stroke alert. Dr Jeison Black, tele-neurology consult. Also noted on exam was right gaze preference and hypersensitivity left upper and left lower extremity. CT scan of the head showed a right sided intracerebral hemorrhage involving the thalamic region and the internal capsule with mild mass-effect over the right lateral ventricle she was conscious on arrival and able to protect her airway. Her blood pressure was elevated. Chest x-ray showed cardiomegaly, poststernotomy and possibly mild CHF. Patient update on day of discharge: 05/14: Improved speech today and clearly oriented to person and place. It appears that she will participate well and her rehabilitation program. DS: Diagnosis - Discharge Diagnosis (1) Pain after cerebrovascular accident (CVA) Status: Acute (2) Nontraumatic intracerebral hemorrhage of basal ganglia Status: Chronic (3) Dysphagia Status: Acute (4) Poorly controlled diabetes mellitus Status: Acute DS: Summary Hospital Course: 73 y/o woman developed acute expressive aphasia earlier today while on the [place] rehab service. CAT scan of the head reveals a new basal ganglia hemorrhage. I discussed the patient with Dr. Vu and arrangements for transfer were made to the intensive surgical care unit. Recent history includes a hemorrhagic stroke on April 18 resulting in dense left sided hemiplegia following which she was receiving rehab care at [place]. She is a 73- year-old female, [id number] with past medical history of hypertension, diabetes mellitus type 2 on oral agent at home, atrial fibrillation status post ablation and depression. In her usual state of health which included independence in ambulation and self-care until 04/18/2018 when she was admitted to [facility] after she slumped forward while sitting in a chair falling to the ground. states the patient did not hit her head, she had immediate left-sided weakness and was brought in as a stroke alert. Dr Jeison Black, tele-neurology consult. Also noted on exam was right gaze preference and hypersensitivity left upper and left lower extremity. CT scan of the head showed a right sided intracerebral hemorrhage involving the thalamic region and the internal capsule with mild mass-effect over the right lateral ventricle she was conscious on arrival and able to protect her airway. Her blood pressure was elevated. Chest x-ray showed cardiomegaly, poststernotomy and possibly mild CHF. 05/12: Speech remains impaired. I think she is oriented to herself but little else. She has a very specific advanced directive which I will ask palliative care to help me navigate. 05/13: Appeared more oriented as the day progressed yesterday. Has expressed to the palliative care service her wishes to follow her advanced directive. She now swallows safely and appears to protect her airway adequately. - Time Spent with Patient Total time spent providing and/or coordinating discharge services: Greater than 30 minutes - Quality: VTE Deep Vein Thrombosis/Pulmonary Embolism Present on Admission: No Exam Vital signs: Vital Signs 05/13/18 12:00 05/13/18 16:00 05/13/18 20:00 Temperature 98.4 F 98.4 F 98.1 F Pulse Rate 60 62 54 L Respiratory Rate 25 H 22 23 Blood Pressure 154/67 H 172/80 H 166/73 H Pulse Oximetry 98 97 98 05/14/18 00:00 05/14/18 04:00 Temperature 98.8 F 98.3 F Pulse Rate 52 L 53 L Respiratory Rate 17 20 Blood Pressure 157/69 H 140/64 Pulse Oximetry 95 96 Intake & Output 05/13/18 05/14/18 05/14/18 18:59 06:59 18:59 Intake Total 360 / 360 2240 / 2240 Output Total 500 / 500 1650 / 1650 Balance -140 / -140 590 / 590 Weight 91.7 kg Intake: IV 1999 NS + KCl 20 mEq Inj 1,000 ML @ 1999 75 mls/hr IV.CONT .[id number] [facility] Rx#:[id number] Oral 360 / 360 240 / 240 Output: Urine Amount (Catheter) 500 / 500 1650 / 1650 Straight 500 / 500 1650 / 1650 Narrative: Breathing comfortably. Protects airway. Speech improved to almost normal. BP well controlled. Interacts with staff. Results Procedures completed during hospitalization: none Labs on day of discharge: Labs from last 24 hours 05/14/18 05/14/18 04:08 00:50 Sodium 144 Potassium 3.7 Chloride 113 H Carbon Dioxide 23.0 Anion Gap 8 BUN 14 Creatinine 0.67 Estimated GFR 87 L POC Glucose 191 H Random Glucose 147 H Calcium 8.5 - Impressions ITS Impressions Head CT 05/12/18 09:08 CONCLUSION: 1. Intraparenchymal hemorrhage involving the right basal ganglia unchanged from previous exam. No new areas of hemorrhage are seen. Discharge Plan - Discharge Disposition Patient Disposition: 62 Rehab Inpatient - Discharge Condition Condition: Fair - Discharge Order Discharge Orders: Discharge Order (Routine); Ordered 05/14/18 Ordered By: Yunior Valle - Discharge Details Anticipated Discharge Date: 05/14/18 - Physicians Team Primary Care Provider: UNKNOWN, Attending Provider: Yunior Valle Other Providers: Beto Rojas MD ; Femi Sanders MD, PhD ; Amy Arreola MD - Rxs /Orders / Referrals /Forms Prescriptions: Continue acetaminophen 325 mg Tablet 650 mg PO Q8H PRN (Reason: Pain Scale 1 To 4/Cough) RF: 0 acetaminophen 325 mg Tablet 650 mg PO HS RF: 0 acidophilus-sporogenes [Acidophilus Ex Str (L. sporog)] 35 million- 25 million cell Tablet 1 tab PO BID RF: 0 amlodipine [Norvasc] 5 mg Tablet 5 mg PO BID RF: 0 atorvastatin [Lipitor] 10 mg Tablet 10 mg PO DAILY RF: 0 clonidine HCl [Catapres] 0.1 mg Tablet 0.1 mg PO Q6H PRN (Reason: Sys Bp Greater Than 180 Mmhg) RF: 0 enalapril maleate 10 mg Tablet 20 mg PO BID RF: 0 famotidine 20 mg Tablet 20 mg PO BID RF: 0 fenofibrate nanocrystallized 145 mg Tablet 145 mg PO HS RF: 0 hydralazine 50 mg Tablet 75 mg PO TID RF: 0 hydrochlorothiazide 25 mg Tablet 25 mg PO DAILY RF: 0 insulin aspart U-100 [Novolog U-100 Insulin aspart] 100 unit/mL Solution 0 unit subcut ACHS RF: 0 insulin glargine 100 unit/mL Solution 16 unit SUB-Q DAILY ipratropium-albuterol 0.5 mg-3 mg(2.5 mg base)/3 mL Solution For Nebulization 1 amp INH Q6HR NEB PRN (Reason: Shortness Of Breath) RF: 0 lidocaine [Lidoderm] 5 % Adhesive Patch,Medicated 1 patch Transdermal DAILY RF: 0 magnesium hydroxide [Milk of Magnesia] 400 mg/5 mL Suspension 30 ml PO Q12H PRN (Reason: Mild Constipation) RF: 0 metoprolol tartrate 25 mg Tablet 25 mg PO BID RF: 0 mirtazapine 15 mg Tablet 15 mg PO HS RF: 0 multivitamin with minerals Tablet 2 tab PO BID ondansetron 4 mg Tablet,Disintegrating 4 mg PO Q4H PRN (Reason: Nausea Or Vomiting) RF: 0 ondansetron HCl 2 mg/mL Solution 2 mg/ml IV Q4HR PRN (Reason: Nausea And Vomiting) potassium chloride 20 mEq Tablet,Er Particles/Crystals 20 meq PO DAILY RF: 0 pramoxine 1 % Foam 1 applicatio [place] Q6H PRN (Reason: Hemorrhoids) RF: 0 tamsulosin 0.4 mg Capsule 0.4 mg PO DAILY RF: 0 Referrals: UNKNOWN, [Primary Care Provider] - See Instructions
[2018-05-14] MEDS: Senna/Docusate Sodium 8.6/50 MG Tablet PO SCH (09:10)
[2018-05-14] MEDS: Famotidine PF Inj 20 MG/2 ML Vial IV.PUSH SCH (09:10)
[2018-05-14] MEDS: Modafinil 200 MG Tablet PO SCH (09:11)
[2018-05-14] MEDS ORDERED: amLODIPine 5 MG Tablet PO SCH (10:30)
[2018-05-14] MEDS ORDERED: Metoprolol Tartrate 25 MG Tablet PO SCH (10:30)
[2018-05-14] MEDS ORDERED: hydroCHLOROthiazide 25 MG Tablet PO SCH (10:30)
[2018-05-14] MEDS: Acetaminophen 325 MG Tablet PO PRN (11:18)
[2018-05-14] MEDS ORDERED: hydrALAZINE 50 MG Tablet PO SCH (13:00)
[2018-05-14 13:19] VITALS: BP 166/75; PULSE 64; RESP 23; TEMP 98; O2SAT 99
[2018-05-14] MEDS ORDERED: Acetaminophen 325 MG Tablet PO SCH (21:00)
[2018-05-14] MEDS ORDERED: Famotidine 20 MG Tablet PO SCH (21:00)
[2018-05-14] MEDS ORDERED: Mirtazapine 15 MG Tablet PO SCH (21:00)
== END 2018-05-14 13:59 ==
LOC: N03 11:31
PROVIDERS: ADMIT Surgery Surgical Critical Care; ATTEND Surgery Surgical Critical Care